=== PATIENT | female | born 1955 | race Caucasian/White ===

== ENCOUNTER 2017-11-15 09:04 | Inpatient (IN) ==
[2017-11-15] MEDS ORDERED: traMADol 50 MG TABLET PO PRN (11:18)
[2017-11-15] MEDS ORDERED: LOPERAMIDE 2 MG CAPSULE PO PRN ×2 (11:18)
[2017-11-15] MEDS ORDERED: ACETAMINOPHEN 325 MG TABLET PO PRN (11:18)
[2017-11-15] MEDS ORDERED: PROMETHAZINE INJ 25 MG in SODIUM CHLORIDE 0.9% 50 ML IV PRN (11:18)
[2017-11-15] MEDS ORDERED: LACTULOSE 20 GM/30 ML UDCUP PO PRN (11:18)
[2017-11-15] MEDS ORDERED: diphenhydrAMINE CAP 25 MG CAPSULE PO PRN (11:18)
[2017-11-15] MEDS ORDERED: chlorproMAZINE INJ 25 MG in SODIUM CHLORIDE 0.9% 100 ML IV PRN (11:18)
[2017-11-15] MEDS ORDERED: ALUMINUM/MAGNES/SIMETH MAX STR 30 ML UDCUP PO PRN (11:18)
[2017-11-15] MEDS ORDERED: MYLANTA/LIDO VISC 2:1 300 ML BOTTLE SWISH/SWAL PRN (11:18)
[2017-11-15] MEDS ORDERED: BENZTROPINE 2 MG/2 ML AMP IV PRN (11:18)
[2017-11-15] MEDS ORDERED: ALPRAZolam 0.25 MG TABLET PO PRN (11:18)
[2017-11-15] MEDS ORDERED: TEMAZEPAM 7.5 MG CAPSULE PO PRN (11:18)
[2017-11-15] MEDS ORDERED: chlorproMAZINE 25 MG TABLET PO PRN (11:18)
[2017-11-15] MEDS ORDERED: chlorproMAZINE INJ 50 MG in SODIUM CHLORIDE 0.9% 100 ML IV PRN (11:18)
[2017-11-15] MEDS ORDERED: guaiFENesin 200 MG/10 ML UDCUP PO PRN (11:18)
[2017-11-15] MEDS ORDERED: MAGNESIUM HYDROXIDE SUSP 30 ML UDCUP PO PRN (11:18)
[2017-11-15] MEDS ORDERED: MYLANTA/LIDO VISC 2:1 300 ML BOTTLE SWISH/SPIT PRN (11:18)
[2017-11-15] MEDS: MORPHINE 2 MG/1 ML SYRINGE IV PRN ×3 (13:21→20:58)
[2017-11-15] MEDS: ONDANSETRON 4 MG/2 ML VIAL IV PRN ×2 (13:25→20:59)
[2017-11-15] MEDS: SODIUM CHLORIDE 0.9% 1,000 ML IV SCH (14:29)
[2017-11-16] MEDS: SODIUM CHLORIDE 0.9% 1,000 ML IV SCH (04:37)
[2017-11-16 06:11] LABS: Calcium 8.3 MG/DL (8.5-10.1); Potassium 3.1 MMOL/L (3.5-5.1)
[2017-11-16] MEDS: DEXT 5% NACL 0.45% KCL 20 MEQ 20 MEQ/1,000 ML BAG IV SCH ×2 (08:44→22:03)
[2017-11-16] MEDS: ONDANSETRON 4 MG/2 ML VIAL IV PRN ×2 (08:44→14:01)
[2017-11-16 11:33] LABS: Apearance,Urine Slightly Hazy (Clear); Bacteria,Urine Occasional /HPF (Few); Bilirubin,Urine Negative (Negative); Blood, Urine Moderate mg/dL (Negative); Glucose,Urine (UA) Negative (Negative); Ketones,Urine Negative (Negative); Nitrite,Urine Negative (Negative); Protein,Urine Negative; RBC,Urine 2 /HPF (0-4); Squamous Epithelial Cell,Urine Occasional /HPF (0-10); Urine Color Yellow (Yellow); Urine Specific Gravity 1.005 (1.001-1.035); Urine Urobilinogen < 2.0 EU/DL (0.2-1.0); WBC,Urine 9 /HPF (0-6)
[2017-11-16] MEDS: MORPHINE 2 MG/1 ML SYRINGE IV PRN (14:01)
[2017-11-17 05:27] LABS: Eosinophils # 0.1 10*3/uL (0.0-0.87); Eosinophils % 1.7 % (0.00-10.9); Hematocrit 23.1 VOL% (35.7-47.0); Hemoglobin 7.7 GM/DL (12.0-16.0); Immature Granulocytes % 1.4 %; Immature Granulocytes Absolute 0.05 #; Lymphocytes # 0.4 10*3/uL (1.4-4.0); Lymphocytes % 11.4 % (21.3-54.2); Mean Corpuscular HGB Conc 33.3 GM/DL (32-36); Mean Corpuscular Hemoglobin 30 PG (27-34); Mean Corpuscular Volume 89.5 FL (87-102); Mean Platelet Volume 9.9 FL (9.6-12.0); Monocytes # 0.4 10*3/uL (0.11-0.8); Monocytes % 11.4 % (1.7-12.7); Neutrophils # 2.6 10*3/uL (1.4-7.4); Neutrophils % 74.1 % (38.7-73.9); Platelet Count 91 T/CUMM (130-400); Red Blood Count 2.58 MC/CUMM (3.8-5.5); Red Cell Distribution Width 16.3 % (9.3-17.3); White Blood Count 3.5 T/CUMM (4-12)
[2017-11-17 05:46] LABS: Microcytosis 1+; Ovalocytes Few
[2017-11-17 05:47] LABS: Albumin 2.7 G/DL (3.4-5.0); Calcium 7.3 MG/DL (8.5-10.1); Osmolality,Calculated 280.2 MOS/KG (273-304); Platelet Estimate Decreased; Potassium 3.2 MMOL/L (3.5-5.1)
[2017-11-17] MEDS ORDERED: SODIUM CHLORIDE 0.9% 1,000 ML IV PRN (07:53)
[2017-11-17] MEDS ORDERED: DIAZEPAM 5 MG TABLET PO ONE (09:29)
[2017-11-17] MEDS ORDERED: fentaNYL 100 MCG/2 ML VIAL IV ONE (09:29)
[2017-11-17] MEDS ORDERED: MIDAZOLAM 2 MG/2 ML VIAL IV ONE (09:29)
[2017-11-17] MEDS: DEXT 5% NACL 0.45% KCL 20 MEQ 20 MEQ/1,000 ML BAG IV SCH (12:13)
[2017-11-17] MEDS ORDERED: fentaNYL 100 MCG/2 ML VIAL ONE (14:10)
[2017-11-17] MEDS ORDERED: MIDAZOLAM 2 MG/2 ML VIAL ONE (14:11)
[2017-11-17] MEDS: ONDANSETRON 4 MG/2 ML VIAL IV PRN (17:29)
[2017-11-17] MEDS: MORPHINE 10 MG/1 ML VIAL IV PRN (17:29)
[2017-11-18 04:58] LABS: Basophils % 0.2 % (0.0-0.8); Eosinophils # 0.1 10*3/uL (0.0-0.87); Hematocrit 28.6 VOL% (35.7-47.0); Immature Granulocytes Absolute 0.04 #; Lymphocytes # 0.4 10*3/uL (1.4-4.0); Mean Corpuscular HGB Conc 33.2 GM/DL (32-36); Mean Corpuscular Hemoglobin 30 PG (27-34); Mean Corpuscular Volume 90.8 FL (87-102); Mean Platelet Volume 9.8 FL (9.6-12.0); Monocytes # 0.5 10*3/uL (0.11-0.8); Monocytes % 11.2 % (1.7-12.7); Neutrophils # 3.1 10*3/uL (1.4-7.4); Neutrophils % 75.6 % (38.7-73.9); Platelet Count 101 T/CUMM (130-400); White Blood Count 4.1 T/CUMM (4-12)
[2017-11-18 05:00] LABS: Hemoglobin 9.5 GM/DL (12.0-16.0); Red Blood Count 3.15 MC/CUMM (3.8-5.5)
[2017-11-18 05:20] LABS: Alanine Aminotransferase < 6 U/L (13-56); Albumin 2.9 G/DL (3.4-5.0); Alkaline Phosphatase 80 U/L (45-117); Aspartate Amino Transferase 12 U/L (0-37); Blood Urea Nitrogen 50 MG/DL (7-18); Calcium 7.9 MG/DL (8.5-10.1); Glucose 85 MG/DL (74-106); Osmolality,Calculated 290.4 MOS/KG (273-304); Potassium 3.4 MMOL/L (3.5-5.1); Sodium 140 MMOL/L (136-145); Total Protein 5.6 G/DL (6.4-8.3)
[2017-11-18 05:24] LABS: Burr Cells Slight; Hypochromasia Slight; Ovalocytes Slight; Platelet Estimate Decreased
[2017-11-18 05:25] LABS: Giant Platelets Few; Microcytosis Slight
[2017-11-18] MEDS: DEXT 5% NACL 0.45% KCL 20 MEQ 20 MEQ/1,000 ML BAG IV SCH ×2 (07:26→19:29)
[2017-11-18] MEDS: PANTOPRAZOLE 40 MG TABLET PO SCH (09:58)
[2017-11-18] MEDS: FLUoxetine 20 MG CAPSULE PO SCH (09:58)
[2017-11-18] MEDS: MORPHINE 10 MG/1 ML VIAL IV PRN ×2 (14:20→21:21)
[2017-11-18] MEDS: MEROPENEM 500 MG in SYRINGE 1 EACH IV SCH (16:14)
[2017-11-18] MEDS: tiZANidine 4 MG TABLET PO PRN ×2 (17:29→23:38)
[2017-11-19 05:44] LABS: Calcium 7.7 MG/DL (8.5-10.1); Osmolality,Calculated 295.8 MOS/KG (273-304); Potassium 3.9 MMOL/L (3.5-5.1)
[2017-11-19 06:14] LABS: Basophils % 0.6 % (0.0-0.8); Eosinophils % 1.2 % (0.00-10.9); Hemoglobin 8.8 GM/DL (12.0-16.0); Immature Granulocytes % 0.9 %; Immature Granulocytes Absolute 0.03 #; Lymphocytes # 0.6 10*3/uL (1.4-4.0); Lymphocytes % 16.2 % (21.3-54.2); Mean Corpuscular HGB Conc 32.6 GM/DL (32-36); Mean Corpuscular Hemoglobin 30 PG (27-34); Mean Corpuscular Volume 92.2 FL (87-102); Monocytes # 0.4 10*3/uL (0.11-0.8); Monocytes % 12.9 % (1.7-12.7); Neutrophils # 2.3 10*3/uL (1.4-7.4); Neutrophils % 68.2 % (38.7-73.9); Platelet Count 95 T/CUMM (130-400); Red Blood Count 2.93 MC/CUMM (3.8-5.5); Red Cell Distribution Width 16.4 % (9.3-17.3); White Blood Count 3.4 T/CUMM (4-12)
[2017-11-19] MEDS: MORPHINE 10 MG/1 ML VIAL IV PRN ×6 (06:27→20:09)
[2017-11-19] MEDS: LEVOTHYROXINE 125 MCG TABLET PO SCH (06:30)
[2017-11-19] MEDS: tiZANidine 4 MG TABLET PO PRN (06:30)
[2017-11-19] MEDS: PANTOPRAZOLE 40 MG TABLET PO SCH (09:07)
[2017-11-19] MEDS: FLUoxetine 20 MG CAPSULE PO SCH (09:09)
[2017-11-19] MEDS: DEXT 5% NACL 0.45% KCL 20 MEQ 20 MEQ/1,000 ML BAG IV SCH ×2 (09:16→22:30)
[2017-11-19] MEDS: BACLOFEN 10 MG TABLET PO SCH ×2 (10:57→21:08)
[2017-11-19] MEDS: MEROPENEM 500 MG in SYRINGE 1 EACH IV SCH (16:30)
[2017-11-20] MEDS: MORPHINE 10 MG/1 ML VIAL IV PRN ×2 (04:59→09:35)
[2017-11-20 05:41] LABS: Basophils % 0.5 % (0.0-0.8); Eosinophils # 0.1 10*3/uL (0.0-0.87); Eosinophils % 2.2 % (0.00-10.9); Hematocrit 29.9 VOL% (35.7-47.0); Hemoglobin 9.7 GM/DL (12.0-16.0); Immature Granulocytes Absolute 0.04 #; Lymphocytes # 0.6 10*3/uL (1.4-4.0); Lymphocytes % 13.9 % (21.3-54.2); Mean Corpuscular HGB Conc 32.4 GM/DL (32-36); Mean Corpuscular Hemoglobin 30 PG (27-34); Mean Corpuscular Volume 92.3 FL (87-102); Mean Platelet Volume 10.1 FL (9.6-12.0); Monocytes # 0.4 10*3/uL (0.11-0.8); Monocytes % 10.5 % (1.7-12.7); Neutrophils % 71.9 % (38.7-73.9); Platelet Count 100 T/CUMM (130-400); Red Blood Count 3.24 MC/CUMM (3.8-5.5); Red Cell Distribution Width 16.8 % (9.3-17.3); White Blood Count 4.2 T/CUMM (4-12)
[2017-11-20] MEDS: LEVOTHYROXINE 125 MCG TABLET PO SCH (06:06)
[2017-11-20] MEDS: DEXT 5% NACL 0.45% KCL 20 MEQ 20 MEQ/1,000 ML BAG IV SCH (06:08)
[2017-11-20 06:12] LABS: Osmolality,Calculated 288.1 MOS/KG (273-304); Potassium 3.8 MMOL/L (3.5-5.1)
[2017-11-20] MEDS: PANTOPRAZOLE 40 MG TABLET PO SCH (09:33)
[2017-11-20] MEDS: BACLOFEN 10 MG TABLET PO SCH (09:33)
[2017-11-20] MEDS: FLUoxetine 20 MG CAPSULE PO SCH (09:34)
[2017-11-20] MEDS: tiZANidine 4 MG TABLET PO PRN (13:37)
[2017-11-20] MEDS: MAGNESIUM CHLORIDE 64 MG TABLET PO SCH ×2 (15:59→20:20)
[2017-11-20] MEDS: MEROPENEM 500 MG in SYRINGE 1 EACH IV SCH (15:59)
[2017-11-20] MEDS: CYCLOBENZAPRINE 10 MG TABLET PO SCH (20:20)
[2017-11-21] MEDS: DEXT 5% NACL 0.45% KCL 20 MEQ 20 MEQ/1,000 ML BAG IV SCH (00:19)
[2017-11-21 06:08] LABS: Basophils % 0.3 % (0.0-0.8); Eosinophils # 0.1 10*3/uL (0.0-0.87); Eosinophils % 1.4 % (0.00-10.9); Hematocrit 29.7 VOL% (35.7-47.0); Hemoglobin 9.5 GM/DL (12.0-16.0); Immature Granulocytes % 0.7 %; Immature Granulocytes Absolute 0.04 #; Lymphocytes # 0.6 10*3/uL (1.4-4.0); Lymphocytes % 10.8 % (21.3-54.2); Mean Corpuscular Hemoglobin 31 PG (27-34); Mean Corpuscular Volume 96.4 FL (87-102); Mean Platelet Volume 9.8 FL (9.6-12.0); Monocytes # 0.5 10*3/uL (0.11-0.8); Monocytes % 8.1 % (1.7-12.7); Neutrophils # 4.6 10*3/uL (1.4-7.4); Neutrophils % 78.7 % (38.7-73.9); Platelet Count 101 T/CUMM (130-400); Red Blood Count 3.08 MC/CUMM (3.8-5.5); Red Cell Distribution Width 16.8 % (9.3-17.3); White Blood Count 5.9 T/CUMM (4-12)
[2017-11-21] MEDS: LEVOTHYROXINE 125 MCG TABLET PO SCH (06:25)
[2017-11-21 06:33] LABS: Albumin 2.8 G/DL (3.4-5.0); Osmolality,Calculated 281.5 MOS/KG (273-304)
[2017-11-21] MEDS: PANTOPRAZOLE 40 MG TABLET PO SCH (09:46)
[2017-11-21] MEDS: CYCLOBENZAPRINE 10 MG TABLET PO SCH (09:46)
[2017-11-21] MEDS: FLUoxetine 20 MG CAPSULE PO SCH (09:46)
[2017-11-21] MEDS: MAGNESIUM CHLORIDE 64 MG TABLET PO SCH (09:46)
[2017-11-21 12:36] VITALS: BP 179/75
[2017-11-21] MEDS ORDERED: HEPARIN LOCK FLUSH 500 UNIT/5 ML SYRINGE IV ONE (13:01)
== END 2017-11-21 13:25 | disposition home health service (06) | DRG 683 ==
LOC: N.4E 10:03
PROVIDERS: ADMIT Specialist; ATTEND Specialist

== ENCOUNTER 2017-12-22 10:05 | Inpatient (IN) ==
[2017-12-22] MEDS ORDERED: SODIUM CHLORIDE 0.9% 500 ML IV STA (10:28)
[2017-12-22 11:03] LABS: Basophils % 0.2 % (0.0-0.8); Eosinophils % 0.2 % (0.00-10.9); Hematocrit 25.4 VOL% (35.7-47.0); Hemoglobin 8.2 GM/DL (12.0-16.0); Immature Granulocytes % 1.2 %; Immature Granulocytes Absolute 0.06 #; Lymphocytes # 0.1 10*3/uL (1.4-4.0); Lymphocytes % 1.2 % (21.3-54.2); Mean Corpuscular HGB Conc 32.3 GM/DL (32-36); Mean Corpuscular Hemoglobin 31 PG (27-34); Mean Corpuscular Volume 94.8 FL (87-102); Monocytes # 0.3 10*3/uL (0.11-0.8); Monocytes % 6.1 % (1.7-12.7); Neutrophils # 4.5 10*3/uL (1.4-7.4); Neutrophils % 91.1 % (38.7-73.9); Platelet Count 136 T/CUMM (130-400); Red Blood Count 2.68 MC/CUMM (3.8-5.5); Red Cell Distribution Width 19.6 % (9.3-17.3)
[2017-12-22 11:20] LABS: Albumin 2.4 G/DL (3.4-5.0); Calcium 8.6 MG/DL (8.5-10.1); Osmolality,Calculated 287.7 MOS/KG (273-304); Potassium 3.3 MMOL/L (3.5-5.1); Total Protein 6.3 G/DL (6.4-8.3)
[2017-12-22 11:22] LABS: Band Neutrophils 4 % (0-10); Lymphocytes 1 % (20-55); Segmented Neutrophils 91 % (50-85); Total Cells Counted 100
[2017-12-22 11:23] LABS: Burr Cells Slight; Microcytosis 1+
[2017-12-22] MEDS ORDERED: chlorproMAZINE INJ 50 MG in SODIUM CHLORIDE 0.9% 100 ML IV PRN (16:05)
[2017-12-22] MEDS ORDERED: chlorproMAZINE INJ 25 MG in SODIUM CHLORIDE 0.9% 100 ML IV PRN (16:05)
[2017-12-22] MEDS ORDERED: diphenhydrAMINE CAP 25 MG CAPSULE PO PRN (16:05)
[2017-12-22] MEDS ORDERED: guaiFENesin 200 MG/10 ML UDCUP PO PRN (16:05)
[2017-12-22] MEDS ORDERED: MYLANTA/LIDO VISC 2:1 300 ML BOTTLE SWISH/SWAL PRN (16:05)
[2017-12-22] MEDS ORDERED: LOPERAMIDE 2 MG CAPSULE PO PRN ×2 (16:05)
[2017-12-22] MEDS ORDERED: chlorproMAZINE 25 MG TABLET PO PRN (16:05)
[2017-12-22] MEDS ORDERED: ALUMINUM/MAGNES/SIMETH MAX STR 30 ML UDCUP PO PRN (16:05)
[2017-12-22] MEDS ORDERED: traMADol 50 MG TABLET PO PRN (16:05)
[2017-12-22] MEDS ORDERED: SODIUM CHLORIDE 0.9% 1,000 ML IV SCH (16:05)
[2017-12-22] MEDS ORDERED: ALPRAZolam 0.25 MG TABLET PO PRN (16:05)
[2017-12-22] MEDS ORDERED: MYLANTA/LIDO VISC 2:1 300 ML BOTTLE SWISH/SPIT PRN (16:05)
[2017-12-22] MEDS ORDERED: MAGNESIUM HYDROXIDE SUSP 30 ML UDCUP PO PRN (16:05)
[2017-12-22] MEDS ORDERED: BENZTROPINE 2 MG/2 ML AMP IV PRN (16:05)
[2017-12-22 16:49] LABS: Uric Acid 10.3 MG/DL (2.6-6.0)
[2017-12-22] MEDS: MORPHINE 2 MG/1 ML SYRINGE IV PRN (22:39)
[2017-12-22] MEDS: ACETAMINOPHEN 325 MG TABLET PO PRN (22:41)
[2017-12-23] MEDS: ACETAMINOPHEN 325 MG TABLET PO PRN (05:01)
[2017-12-23 06:52] LABS: Basophils % 0.4 % (0.0-0.8); Hematocrit 25.5 VOL% (35.7-47.0); Hemoglobin 8.3 GM/DL (12.0-16.0); Immature Granulocytes % 8.2 %; Immature Granulocytes Absolute 0.23 #; Lymphocytes % 1.4 % (21.3-54.2); Mean Corpuscular HGB Conc 32.5 GM/DL (32-36); Mean Corpuscular Hemoglobin 30 PG (27-34); Mean Corpuscular Volume 93.4 FL (87-102); Mean Platelet Volume 10.6 FL (9.6-12.0); Monocytes # 0.1 10*3/uL (0.11-0.8); Monocytes % 2.5 % (1.7-12.7); Neutrophils # 2.5 10*3/uL (1.4-7.4); Neutrophils % 87.5 % (38.7-73.9); Platelet Count 130 T/CUMM (130-400); Red Blood Count 2.73 MC/CUMM (3.8-5.5); Red Cell Distribution Width 19.9 % (9.3-17.3); White Blood Count 2.8 T/CUMM (4-12)
[2017-12-23 07:11] LABS: Alanine Aminotransferase < 6 U/L (13-56); Albumin 2.4 G/DL (3.4-5.0); Alkaline Phosphatase 138 U/L (45-117); Aspartate Amino Transferase 18 U/L (0-37); Blood Urea Nitrogen 51 MG/DL (7-18); Calcium 7.7 MG/DL (8.5-10.1); Glucose 80 MG/DL (74-106); Osmolality,Calculated 293.3 MOS/KG (273-304); Potassium 3.5 MMOL/L (3.5-5.1); Sodium 141 MMOL/L (136-145); Total Protein 5.8 G/DL (6.4-8.3)
[2017-12-23 07:38] LABS: Band Neutrophils 2 % (0-10); Lymphocytes 1 % (20-55); Segmented Neutrophils 96 % (50-85); Total Cells Counted 100
[2017-12-23 07:39] LABS: Hypochromasia 1+; Microcytosis 1+; Ovalocytes Slight; Platelet Estimate Adequate
[2017-12-23] MEDS ORDERED: SODIUM CHLORIDE 0.9% 1,000 ML IV PRN (08:11)
[2017-12-23] MEDS ORDERED: LEVOFLOXACIN INJ 500 MG in PREMIX 1 EACH IV SCH (08:30)
[2017-12-23 10:03] LABS: Apearance,Urine CLOUDY (Clear); Bilirubin,Urine Negative (Negative); Blood, Urine Moderate mg/dL (Negative); Glucose,Urine (UA) Negative (Negative); Ketones,Urine Negative (Negative); Mucus,Urine Occasional /LPF (Occasional); Nitrite,Urine Negative (Negative); Protein,Urine 100 MG/DL; RBC,Urine 81 /HPF (0-4); Urine Specific Gravity 1.011 (1.001-1.035); WBC,Urine 772 /HPF (0-6)
[2017-12-23 10:04] LABS: Urine Color Dark yellow (Yellow)
[2017-12-23] MEDS: PANTOPRAZOLE 40 MG TABLET PO SCH (10:16)
[2017-12-23] MEDS: LEVOTHYROXINE 125 MCG TABLET PO SCH (10:16)
[2017-12-23] MEDS: FLUoxetine 20 MG CAPSULE PO SCH (10:16)
[2017-12-23] MEDS: METOPROLOL TARTRATE 50 MG TABLET PO SCH (10:16)
[2017-12-23] MEDS: SODIUM CHLORIDE 0.45% 1,000 ML IV SCH (10:17)
[2017-12-23] MEDS: VANCOMYCIN INJ 1,250 MG in SODIUM CHLORIDE 0.9% 250 ML IV SCH (12:55)
[2017-12-23] MEDS: MORPHINE 2 MG/1 ML SYRINGE IV PRN ×3 (13:40→22:49)
[2017-12-24] MEDS: SODIUM CHLORIDE 0.45% 1,000 ML IV SCH ×2 (04:59→08:08)
[2017-12-24 06:29] LABS: Basophils % 0.9 % (0.0-0.8); Hematocrit 29.3 VOL% (35.7-47.0); Hemoglobin 9.8 GM/DL (12.0-16.0); Immature Granulocytes % 0.5 %; Immature Granulocytes Absolute 0.01 #; Lymphocytes # 0.1 10*3/uL (1.4-4.0); Lymphocytes % 2.3 % (21.3-54.2); Mean Corpuscular HGB Conc 33.4 GM/DL (32-36); Mean Corpuscular Hemoglobin 30 PG (27-34); Mean Corpuscular Volume 90.7 FL (87-102); Mean Platelet Volume 10.6 FL (9.6-12.0); Monocytes # 0.1 10*3/uL (0.11-0.8); Neutrophils % 91.3 % (38.7-73.9); Platelet Count 118 T/CUMM (130-400); Red Blood Count 3.23 MC/CUMM (3.8-5.5); Red Cell Distribution Width 19.6 % (9.3-17.3); White Blood Count 2.2 T/CUMM (4-12)
[2017-12-24 06:55] LABS: Band Neutrophils 15 % (0-10); Lymphocytes 16 % (20-55); Macrocytosis 1+; Nucleated Red Blood Cells 1 (0-5); Platelet Estimate Decreased; Segmented Neutrophils 66 % (50-85); Total Cells Counted 100
[2017-12-24 07:03] LABS: Albumin 2.2 G/DL (3.4-5.0); Bilirubin,Total 1.3 MG/DL (0.2-1.0); Calcium 8.3 MG/DL (8.5-10.1); Osmolality,Calculated 290.4 MOS/KG (273-304); Potassium 3.4 MMOL/L (3.5-5.1); Total Protein 5.8 G/DL (6.4-8.3)
[2017-12-24] MEDS: LINACLOTIDE 145 MCG CAPSULE PO SCH (08:06)
[2017-12-24] MEDS: PANTOPRAZOLE 40 MG TABLET PO SCH (08:06)
[2017-12-24] MEDS: ONDANSETRON 4 MG/2 ML VIAL IV PRN ×2 (08:06→21:40)
[2017-12-24] MEDS: FLUoxetine 20 MG CAPSULE PO SCH (08:06)
[2017-12-24] MEDS: LEVOTHYROXINE 125 MCG TABLET PO SCH (08:06)
[2017-12-24] MEDS: METOPROLOL TARTRATE 50 MG TABLET PO SCH (08:06)
[2017-12-24] MEDS: MORPHINE 2 MG/1 ML SYRINGE IV PRN (08:06)
[2017-12-24] MEDS ORDERED: LEVOFLOXACIN INJ 250 MG in PREMIX 1 EACH IV SCH (09:00)
[2017-12-24] MEDS: LACTULOSE 20 GM/30 ML UDCUP PO PRN (10:04)
[2017-12-24] MEDS: DEXT 5% NACL 0.45% KCL 20 MEQ 20 MEQ/1,000 ML BAG IV SCH ×2 (10:04→20:22)
[2017-12-24] MEDS: TEMAZEPAM 7.5 MG CAPSULE PO PRN (21:28)
[2017-12-25] MEDS: PROMETHAZINE INJ 25 MG in SODIUM CHLORIDE 0.9% 50 ML IV PRN ×3 (00:25→11:59)
[2017-12-25] MEDS: DEXT 5% NACL 0.45% KCL 20 MEQ 20 MEQ/1,000 ML BAG IV SCH ×4 (06:20→21:35)
[2017-12-25] MEDS: FLUoxetine 20 MG CAPSULE PO SCH (08:28)
[2017-12-25] MEDS: PANTOPRAZOLE 40 MG TABLET PO SCH (08:28)
[2017-12-25] MEDS: LEVOTHYROXINE 125 MCG TABLET PO SCH (08:28)
[2017-12-25] MEDS: METOPROLOL TARTRATE 50 MG TABLET PO SCH (08:28)
[2017-12-25] MEDS: LINACLOTIDE 145 MCG CAPSULE PO SCH (08:29)
[2017-12-25] MEDS: MORPHINE 2 MG/1 ML SYRINGE IV PRN ×3 (08:38→22:11)
[2017-12-25] MEDS: ONDANSETRON 4 MG/2 ML VIAL IV PRN (08:39)
[2017-12-25 11:52] LABS: Calcium 8.9 MG/DL (8.5-10.1); Osmolality,Calculated 292.4 MOS/KG (273-304); Potassium 3.8 MMOL/L (3.5-5.1)
[2017-12-25] MEDS: VANCOMYCIN INJ 1,250 MG in SODIUM CHLORIDE 0.9% 250 ML IV SCH (13:18)
[2017-12-25] MEDS: MUPIROCIN 2% OINT 22 GM TUBE TOP SCH ×2 (15:12→20:58)
[2017-12-25] MEDS: PHENOL 1.4% THROAT SPRAY 177 ML BOTTLE PO PRN ×2 (15:12→21:39)
[2017-12-26] MEDS: DEXT 5% NACL 0.45% KCL 20 MEQ 20 MEQ/1,000 ML BAG IV SCH ×2 (03:15→16:38)
[2017-12-26] MEDS: MORPHINE 2 MG/1 ML SYRINGE IV PRN ×4 (04:24→18:08)
[2017-12-26 04:41] LABS: Basophils % 0.3 % (0.0-0.8); Eosinophils % 0.3 % (0.00-10.9); Hematocrit 29.7 VOL% (35.7-47.0); Hemoglobin 9.5 GM/DL (12.0-16.0); Immature Granulocytes % 1.4 %; Immature Granulocytes Absolute 0.05 #; Lymphocytes # 0.1 10*3/uL (1.4-4.0); Lymphocytes % 3.4 % (21.3-54.2); Mean Corpuscular Hemoglobin 30 PG (27-34); Mean Platelet Volume 10.8 FL (9.6-12.0); Monocytes # 0.2 10*3/uL (0.11-0.8); Monocytes % 4.8 % (1.7-12.7); Neutrophils # 3.2 10*3/uL (1.4-7.4); Neutrophils % 89.8 % (38.7-73.9); Platelet Count 95 T/CUMM (130-400); Red Blood Count 3.16 MC/CUMM (3.8-5.5); Red Cell Distribution Width 19.4 % (9.3-17.3); White Blood Count 3.5 T/CUMM (4-12)
[2017-12-26 05:05] LABS: Band Neutrophils 3 % (0-10); Lymphocytes 10 % (20-55); Macrocytosis 2+; Platelet Estimate Decreased; Segmented Neutrophils 86 % (50-85); Total Cells Counted 100
[2017-12-26 05:07] LABS: Alanine Aminotransferase < 9 U/L (13-56); Alkaline Phosphatase 113 U/L (45-117); Aspartate Amino Transferase 19 U/L (0-37); Blood Urea Nitrogen 42 MG/DL (7-18); Calcium 8.5 MG/DL (8.5-10.1); Glucose 110 MG/DL (74-106); Potassium 3.8 MMOL/L (3.5-5.1); Sodium 143 MMOL/L (136-145); Total Protein 5.7 G/DL (6.4-8.3)
[2017-12-26] MEDS: MUPIROCIN 2% OINT 22 GM TUBE TOP SCH ×3 (08:38→21:08)
[2017-12-26] MEDS: LEVOTHYROXINE 125 MCG TABLET PO SCH (09:30)
[2017-12-26] MEDS: FLUoxetine 20 MG CAPSULE PO SCH (09:31)
[2017-12-26] MEDS: PANTOPRAZOLE 40 MG TABLET PO SCH (09:31)
[2017-12-26] MEDS: METOPROLOL TARTRATE 50 MG TABLET PO SCH (09:31)
[2017-12-26] MEDS: LINACLOTIDE 145 MCG CAPSULE PO SCH (09:31)
[2017-12-26] MEDS ORDERED: FUROSEMIDE 20 MG/2 ML VIAL IV ONE (16:16)
[2017-12-26] MEDS: ACETAMINOPHEN 325 MG TABLET PO PRN (16:37)
[2017-12-27] MEDS: MORPHINE 2 MG/1 ML SYRINGE IV PRN ×3 (01:25→15:57)
[2017-12-27] MEDS: TEMAZEPAM 7.5 MG CAPSULE PO PRN (01:27)
[2017-12-27] MEDS: DEXT 5% NACL 0.45% KCL 20 MEQ 20 MEQ/1,000 ML BAG IV SCH ×2 (03:35→20:46)
[2017-12-27 05:50] LABS: Eosinophils % 0.3 % (0.00-10.9); Hematocrit 28.9 VOL% (35.7-47.0); Hemoglobin 9.1 GM/DL (12.0-16.0); Immature Granulocytes % 4.5 %; Immature Granulocytes Absolute 0.14 #; Lymphocytes # 0.2 10*3/uL (1.4-4.0); Lymphocytes % 5.4 % (21.3-54.2); Mean Corpuscular HGB Conc 31.5 GM/DL (32-36); Mean Corpuscular Hemoglobin 30 PG (27-34); Mean Corpuscular Volume 95.4 FL (87-102); Mean Platelet Volume 11.2 FL (9.6-12.0); Monocytes # 0.1 10*3/uL (0.11-0.8); Monocytes % 4.2 % (1.7-12.7); Neutrophils # 2.7 10*3/uL (1.4-7.4); Neutrophils % 85.6 % (38.7-73.9); Platelet Count 76 T/CUMM (130-400); Red Blood Count 3.03 MC/CUMM (3.8-5.5); Red Cell Distribution Width 19.3 % (9.3-17.3); White Blood Count 3.1 T/CUMM (4-12)
[2017-12-27 06:14] LABS: Band Neutrophils 1 % (0-10); Eosinophils 1 % (0-10); Giant Platelets Few; Hypochromasia 1+; Lymphocytes 5 % (20-55); Ovalocytes Slight; Platelet Estimate Decreased; Segmented Neutrophils 88 % (50-85); Total Cells Counted 100
[2017-12-27] MEDS: PANTOPRAZOLE 40 MG TABLET PO SCH (08:41)
[2017-12-27] MEDS: LEVOTHYROXINE 125 MCG TABLET PO SCH (08:41)
[2017-12-27] MEDS: METOPROLOL TARTRATE 50 MG TABLET PO SCH (08:41)
[2017-12-27] MEDS: FLUoxetine 20 MG CAPSULE PO SCH (08:41)
[2017-12-27] MEDS: LINACLOTIDE 145 MCG CAPSULE PO SCH (08:42)
[2017-12-27] MEDS: MUPIROCIN 2% OINT 22 GM TUBE TOP SCH ×3 (08:44→20:45)
[2017-12-27] MEDS: VANCOMYCIN INJ 1,250 MG in SODIUM CHLORIDE 0.9% 250 ML IV SCH (12:21)
[2017-12-28] MEDS: MORPHINE 2 MG/1 ML SYRINGE IV PRN ×3 (03:07→19:25)
[2017-12-28 03:59] LABS: Basophils % 0.3 % (0.0-0.8); Eosinophils % 0.3 % (0.00-10.9); Hematocrit 30.3 VOL% (35.7-47.0); Hemoglobin 9.8 GM/DL (12.0-16.0); Immature Granulocytes % 3.7 %; Immature Granulocytes Absolute 0.14 #; Lymphocytes # 0.1 10*3/uL (1.4-4.0); Lymphocytes % 3.5 % (21.3-54.2); Mean Corpuscular HGB Conc 32.3 GM/DL (32-36); Mean Corpuscular Hemoglobin 30 PG (27-34); Mean Corpuscular Volume 92.9 FL (87-102); Mean Platelet Volume 10.7 FL (9.6-12.0); Monocytes # 0.2 10*3/uL (0.11-0.8); Monocytes % 5.6 % (1.7-12.7); Neutrophils # 3.2 10*3/uL (1.4-7.4); Neutrophils % 86.6 % (38.7-73.9); Platelet Count 70 T/CUMM (130-400); Red Blood Count 3.26 MC/CUMM (3.8-5.5); Red Cell Distribution Width 18.8 % (9.3-17.3); White Blood Count 3.7 T/CUMM (4-12)
[2017-12-28 04:23] LABS: Band Neutrophils 3 % (0-10); Lymphocytes 4 % (20-55); Macrocytosis 1+; Platelet Estimate Decreased; Segmented Neutrophils 92 % (50-85); Total Cells Counted 100
[2017-12-28 04:24] LABS: Albumin 2.2 G/DL (3.4-5.0); Calcium 8.2 MG/DL (8.5-10.1); Total Protein 5.7 G/DL (6.4-8.3)
[2017-12-28 04:25] LABS: Osmolality,Calculated 279.5 MOS/KG (273-304); Potassium 3.4 MMOL/L (3.5-5.1)
[2017-12-28] MEDS: METOPROLOL TARTRATE 50 MG TABLET PO SCH (09:45)
[2017-12-28] MEDS: MAGNESIUM OXIDE 400 MG TABLET PO SCH ×2 (09:46→21:08)
[2017-12-28] MEDS: PANTOPRAZOLE 40 MG TABLET PO SCH (09:46)
[2017-12-28] MEDS: LEVOTHYROXINE 125 MCG TABLET PO SCH (09:47)
[2017-12-28] MEDS: FLUoxetine 20 MG CAPSULE PO SCH (09:47)
[2017-12-28] MEDS: MUPIROCIN 2% OINT 22 GM TUBE TOP SCH ×3 (09:48→21:09)
[2017-12-28] MEDS: LINACLOTIDE 145 MCG CAPSULE PO SCH (10:19)
[2017-12-28] MEDS ORDERED: LIDOCAINE 1%/EPI INJ 20 ML VIAL ONE (10:57)
[2017-12-28] MEDS ORDERED: TISSUE ADHESIVE 1 EACH APPLICATOR TOP ONE (10:57)
[2017-12-28] MEDS: VANCOMYCIN INJ 1,250 MG in SODIUM CHLORIDE 0.9% 250 ML IV SCH ×2 (11:20→21:08)
[2017-12-28] MEDS ORDERED: PROPOFOL 200 MG/20 ML VIAL IV ONE (11:54)
[2017-12-28] MEDS ORDERED: MIDAZOLAM 2 MG/2 ML VIAL ONE (11:54)
[2017-12-28] MEDS ORDERED: fentaNYL 100 MCG/2 ML VIAL ONE (11:55)
[2017-12-28] MEDS: DEXT 5% NACL 0.45% KCL 20 MEQ 20 MEQ/1,000 ML BAG IV SCH (19:25)
[2017-12-29 05:15] LABS: Basophils % 0.3 % (0.0-0.8); Eosinophils % 0.3 % (0.00-10.9); Hematocrit 33.6 VOL% (35.7-47.0); Hemoglobin 10.7 GM/DL (12.0-16.0); Immature Granulocytes % 2.6 %; Lymphocytes # 0.2 10*3/uL (1.4-4.0); Lymphocytes % 5.8 % (21.3-54.2); Mean Corpuscular HGB Conc 31.8 GM/DL (32-36); Mean Corpuscular Hemoglobin 30 PG (27-34); Mean Corpuscular Volume 93.9 FL (87-102); Mean Platelet Volume 11.2 FL (9.6-12.0); Monocytes # 0.2 10*3/uL (0.11-0.8); Monocytes % 5.8 % (1.7-12.7); Neutrophils # 3.2 10*3/uL (1.4-7.4); Neutrophils % 85.2 % (38.7-73.9); Platelet Count 75 T/CUMM (130-400); Red Blood Count 3.58 MC/CUMM (3.8-5.5); Red Cell Distribution Width 18.5 % (9.3-17.3); White Blood Count 3.8 T/CUMM (4-12)
[2017-12-29 05:39] LABS: Eosinophils 2 % (0-10); Hypochromasia 1+; Lymphocytes 3 % (20-55); Microcytosis 1+; Segmented Neutrophils 92 % (50-85); Total Cells Counted 100
[2017-12-29 05:40] LABS: Ovalocytes Slight; Platelet Estimate Decreased
[2017-12-29 06:01] LABS: Albumin 2.3 G/DL (3.4-5.0); Bilirubin,Total 1.7 MG/DL (0.2-1.0); Osmolality,Calculated 278.5 MOS/KG (273-304); Potassium 3.5 MMOL/L (3.5-5.1); Total Protein 5.7 G/DL (6.4-8.3)
[2017-12-29] MEDS: LEVOTHYROXINE 125 MCG TABLET PO SCH (10:03)
[2017-12-29] MEDS: MAGNESIUM OXIDE 400 MG TABLET PO SCH ×2 (10:03→21:28)
[2017-12-29] MEDS: FLUoxetine 20 MG CAPSULE PO SCH (10:03)
[2017-12-29] MEDS: VANCOMYCIN INJ 1,250 MG in SODIUM CHLORIDE 0.9% 250 ML IV SCH (10:04)
[2017-12-29] MEDS: LINACLOTIDE 145 MCG CAPSULE PO SCH (10:04)
[2017-12-29] MEDS: PANTOPRAZOLE 40 MG TABLET PO SCH (10:04)
[2017-12-29] MEDS: METOPROLOL TARTRATE 50 MG TABLET PO SCH (10:04)
[2017-12-29] MEDS: MUPIROCIN 2% OINT 22 GM TUBE TOP SCH ×3 (10:05→21:32)
[2017-12-29] MEDS: MORPHINE 2 MG/1 ML SYRINGE IV PRN ×2 (10:07→18:05)
[2017-12-29] MEDS: TEMAZEPAM 7.5 MG CAPSULE PO PRN (21:28)
[2017-12-29] MEDS: DEXT 5% NACL 0.45% KCL 20 MEQ 20 MEQ/1,000 ML BAG IV SCH (21:30)
[2017-12-30] MEDS: VANCOMYCIN INJ 1,250 MG in SODIUM CHLORIDE 0.9% 250 ML IV SCH ×2 (04:25→20:50)
[2017-12-30] MEDS ORDERED: LABETALOL 20 MG/4 ML SYRINGE IV ONE (05:45)
[2017-12-30 05:53] LABS: Hematocrit 32.2 VOL% (35.7-47.0); Hemoglobin 10.4 GM/DL (12.0-16.0); Immature Granulocytes % 1.7 %; Immature Granulocytes Absolute 0.07 #; Lymphocytes # 0.2 10*3/uL (1.4-4.0); Lymphocytes % 4.2 % (21.3-54.2); Mean Corpuscular HGB Conc 32.3 GM/DL (32-36); Mean Corpuscular Hemoglobin 30 PG (27-34); Mean Corpuscular Volume 92.8 FL (87-102); Monocytes # 0.2 10*3/uL (0.11-0.8); Monocytes % 5.7 % (1.7-12.7); Neutrophils # 3.6 10*3/uL (1.4-7.4); Neutrophils % 88.4 % (38.7-73.9); Platelet Count 81 T/CUMM (130-400); Red Blood Count 3.47 MC/CUMM (3.8-5.5); Red Cell Distribution Width 18.2 % (9.3-17.3)
[2017-12-30] MEDS: MORPHINE 2 MG/1 ML SYRINGE IV PRN ×4 (06:00→19:43)
[2017-12-30 06:16] LABS: Albumin 2.3 G/DL (3.4-5.0); Bilirubin,Total 1.5 MG/DL (0.2-1.0); Calcium 8.2 MG/DL (8.5-10.1); Osmolality,Calculated 273.8 MOS/KG (273-304); Potassium 3.6 MMOL/L (3.5-5.1); Total Protein 6.1 G/DL (6.4-8.3)
[2017-12-30 06:24] LABS: Lymphocytes 2 % (20-55); Segmented Neutrophils 93 % (50-85); Total Cells Counted 100
[2017-12-30 06:25] LABS: Giant Platelets Few; Hypochromasia 1+; Microcytosis Slight; Ovalocytes Slight; Platelet Estimate Decreased
[2017-12-30] MEDS: PANTOPRAZOLE 40 MG TABLET PO SCH (09:39)
[2017-12-30] MEDS: MAGNESIUM OXIDE 400 MG TABLET PO SCH ×2 (09:39→20:45)
[2017-12-30] MEDS: FLUoxetine 20 MG CAPSULE PO SCH (09:39)
[2017-12-30] MEDS: METOPROLOL TARTRATE 50 MG TABLET PO SCH (09:39)
[2017-12-30] MEDS: LINACLOTIDE 145 MCG CAPSULE PO SCH (09:39)
[2017-12-30] MEDS: LEVOTHYROXINE 125 MCG TABLET PO SCH (09:39)
[2017-12-30] MEDS: MUPIROCIN 2% OINT 22 GM TUBE TOP SCH ×3 (10:29→20:46)
[2017-12-30] MEDS ORDERED: SODIUM CHLORIDE 0.9% 1,000 ML IV SCH ×2 (17:30)
[2017-12-30] MEDS: DEXT 5% NACL 0.45% KCL 20 MEQ 20 MEQ/1,000 ML BAG IV SCH ×2 (18:02→19:47)
[2017-12-30] MEDS ORDERED: hydrALAZINE 20 MG/1 ML VIAL IV PRN (22:00)
[2017-12-31] MEDS ORDERED: cloNIDine 0.1 MG TABLET PO ONE (04:38)
[2017-12-31] MEDS: LINACLOTIDE 145 MCG CAPSULE PO SCH (08:12)
[2017-12-31] MEDS ORDERED: PROPOFOL 200 MG/20 ML VIAL IV ONE (08:48)
[2017-12-31] MEDS ORDERED: MIDAZOLAM 2 MG/2 ML VIAL ONE (08:48)
[2017-12-31] MEDS ORDERED: fentaNYL 100 MCG/2 ML VIAL ONE (08:48)
[2017-12-31] MEDS ORDERED: LACTULOSE 20 GM/30 ML UDCUP PO ONE (09:49)
[2017-12-31] MEDS: amLODIPine 10 MG TABLET PO SCH (11:22)
[2017-12-31] MEDS: PANTOPRAZOLE 40 MG TABLET PO SCH (11:25)
[2017-12-31] MEDS: METOPROLOL TARTRATE 50 MG TABLET PO SCH (11:25)
[2017-12-31] MEDS: MAGNESIUM OXIDE 400 MG TABLET PO SCH ×2 (11:25→20:08)
[2017-12-31] MEDS: LEVOTHYROXINE 125 MCG TABLET PO SCH (11:26)
[2017-12-31] MEDS: FLUoxetine 20 MG CAPSULE PO SCH (11:26)
[2017-12-31] MEDS: MUPIROCIN 2% OINT 22 GM TUBE TOP SCH ×3 (11:26→23:08)
[2017-12-31] MEDS: CYCLOBENZAPRINE 10 MG TABLET PO SCH ×2 (16:19→20:09)
[2017-12-31] MEDS: MORPHINE 10 MG/1 ML VIAL IV PRN ×2 (20:07→23:08)
[2017-12-31] MEDS: DEXT 5% NACL 0.45% KCL 20 MEQ 20 MEQ/1,000 ML BAG IV SCH (20:14)
[2018-01-01] MEDS: MORPHINE 10 MG/1 ML VIAL IV PRN ×3 (01:23→09:46)
[2018-01-01 05:41] LABS: Albumin 2.6 G/DL (3.4-5.0); Calcium 8.1 MG/DL (8.5-10.1); Osmolality,Calculated 272.8 MOS/KG (273-304); Potassium 3.8 MMOL/L (3.5-5.1)
[2018-01-01 06:33] LABS: Hematocrit 31.6 VOL% (35.7-47.0); Hemoglobin 10.1 GM/DL (12.0-16.0); Immature Granulocytes % 1.1 %; Immature Granulocytes Absolute 0.04 #; Lymphocytes # 0.2 10*3/uL (1.4-4.0); Lymphocytes % 5.7 % (21.3-54.2); Mean Corpuscular Hemoglobin 30 PG (27-34); Mean Corpuscular Volume 93.8 FL (87-102); Monocytes # 0.3 10*3/uL (0.11-0.8); Monocytes % 9.8 % (1.7-12.7); Neutrophils # 2.9 10*3/uL (1.4-7.4); Neutrophils % 83.4 % (38.7-73.9); Platelet Count 89 T/CUMM (130-400); Red Blood Count 3.37 MC/CUMM (3.8-5.5); Red Cell Distribution Width 17.5 % (9.3-17.3); White Blood Count 3.5 T/CUMM (4-12)
[2018-01-01] MEDS: amLODIPine 10 MG TABLET PO SCH (09:41)
[2018-01-01] MEDS: PANTOPRAZOLE 40 MG TABLET PO SCH (09:41)
[2018-01-01] MEDS: CYCLOBENZAPRINE 10 MG TABLET PO SCH ×3 (09:41→20:45)
[2018-01-01] MEDS: FLUoxetine 20 MG CAPSULE PO SCH (09:42)
[2018-01-01] MEDS: LEVOTHYROXINE 125 MCG TABLET PO SCH (09:42)
[2018-01-01] MEDS: METOPROLOL TARTRATE 50 MG TABLET PO SCH (09:42)
[2018-01-01] MEDS: MAGNESIUM OXIDE 400 MG TABLET PO SCH ×2 (09:42→20:45)
[2018-01-01] MEDS: MUPIROCIN 2% OINT 22 GM TUBE TOP SCH ×3 (09:48→20:44)
[2018-01-01] MEDS: LINACLOTIDE 145 MCG CAPSULE PO SCH (10:10)
[2018-01-01] MEDS: VANCOMYCIN INJ 1,250 MG in SODIUM CHLORIDE 0.9% 250 ML IV SCH (13:13)
[2018-01-01] MEDS: DEXT 5% NACL 0.45% KCL 20 MEQ 20 MEQ/1,000 ML BAG IV SCH (17:45)
[2018-01-02] MEDS: MORPHINE 10 MG/1 ML VIAL IV PRN ×3 (00:11→14:19)
[2018-01-02] MEDS: MUPIROCIN 2% OINT 22 GM TUBE TOP SCH ×3 (09:17→20:10)
[2018-01-02] MEDS: LEVOTHYROXINE 125 MCG TABLET PO SCH (09:17)
[2018-01-02] MEDS: amLODIPine 10 MG TABLET PO SCH (09:17)
[2018-01-02] MEDS: METOPROLOL TARTRATE 50 MG TABLET PO SCH (09:17)
[2018-01-02] MEDS: FLUoxetine 20 MG CAPSULE PO SCH (09:17)
[2018-01-02] MEDS: MAGNESIUM OXIDE 400 MG TABLET PO SCH ×2 (09:18→20:10)
[2018-01-02] MEDS: CYCLOBENZAPRINE 10 MG TABLET PO SCH ×3 (09:18→20:10)
[2018-01-02] MEDS: LINACLOTIDE 145 MCG CAPSULE PO SCH (09:18)
[2018-01-02] MEDS: PANTOPRAZOLE 40 MG TABLET PO SCH (09:18)
[2018-01-02] MEDS: FONDAPARINUX 2.5 MG/0.5 ML SYRINGE SUBCUT SCH (11:32)
[2018-01-02] MEDS: VANCOMYCIN INJ 1,250 MG in SODIUM CHLORIDE 0.9% 250 ML IV SCH (11:34)
[2018-01-02] MEDS: DEXT 5% NACL 0.45% KCL 20 MEQ 20 MEQ/1,000 ML BAG IV SCH (15:56)
[2018-01-03] MEDS: MORPHINE 10 MG/1 ML VIAL IV PRN ×7 (00:39→23:14)
[2018-01-03 05:21] LABS: Basophils % 0.3 % (0.0-0.8); Hematocrit 28.8 VOL% (35.7-47.0); Hemoglobin 9.6 GM/DL (12.0-16.0); Immature Granulocytes Absolute 0.03 #; Lymphocytes # 0.3 10*3/uL (1.4-4.0); Lymphocytes % 8.1 % (21.3-54.2); Mean Corpuscular HGB Conc 33.3 GM/DL (32-36); Mean Corpuscular Hemoglobin 30 PG (27-34); Mean Corpuscular Volume 90.9 FL (87-102); Mean Platelet Volume 10.9 FL (9.6-12.0); Monocytes # 0.3 10*3/uL (0.11-0.8); Monocytes % 11.1 % (1.7-12.7); Neutrophils # 2.4 10*3/uL (1.4-7.4); Neutrophils % 79.5 % (38.7-73.9); Platelet Count 88 T/CUMM (130-400); Red Blood Count 3.17 MC/CUMM (3.8-5.5); Red Cell Distribution Width 16.8 % (9.3-17.3); White Blood Count 3.1 T/CUMM (4-12)
[2018-01-03 05:58] LABS: Band Neutrophils 4 % (0-10); Giant Platelets Few; Hypochromasia 1+; Lymphocytes 13 % (20-55); Microcytosis Slight; Ovalocytes Slight; Platelet Estimate Decreased; Segmented Neutrophils 73 % (50-85); Total Cells Counted 100
[2018-01-03 06:01] LABS: Albumin 2.5 G/DL (3.4-5.0); Bilirubin,Total 1.1 MG/DL (0.2-1.0); Calcium 8.3 MG/DL (8.5-10.1); Osmolality,Calculated 273.8 MOS/KG (273-304); Total Protein 6.1 G/DL (6.4-8.3)
[2018-01-03] MEDS: LINACLOTIDE 145 MCG CAPSULE PO SCH (08:17)
[2018-01-03] MEDS: amLODIPine 10 MG TABLET PO SCH (08:22)
[2018-01-03] MEDS: FLUoxetine 20 MG CAPSULE PO SCH (08:22)
[2018-01-03] MEDS: MAGNESIUM OXIDE 400 MG TABLET PO SCH ×2 (08:22→20:45)
[2018-01-03] MEDS: METOPROLOL TARTRATE 50 MG TABLET PO SCH (08:22)
[2018-01-03] MEDS: CYCLOBENZAPRINE 10 MG TABLET PO SCH ×3 (08:22→20:45)
[2018-01-03] MEDS: LEVOTHYROXINE 125 MCG TABLET PO SCH (08:22)
[2018-01-03] MEDS: PANTOPRAZOLE 40 MG TABLET PO SCH (08:22)
[2018-01-03] MEDS: MUPIROCIN 2% OINT 22 GM TUBE TOP SCH ×3 (11:38→20:47)
[2018-01-03] MEDS: FONDAPARINUX 2.5 MG/0.5 ML SYRINGE SUBCUT SCH (11:46)
[2018-01-03] MEDS: DEXT 5% NACL 0.45% KCL 20 MEQ 20 MEQ/1,000 ML BAG IV SCH (12:07)
[2018-01-03] MEDS: CEFTAROLINE 600 MG in SODIUM CHLORIDE 0.9% 100 ML IV SCH (14:16)
[2018-01-03] MEDS: VANCOMYCIN INJ 1,250 MG in SODIUM CHLORIDE 0.9% 250 ML IV SCH (15:26)
[2018-01-04] MEDS: CEFTAROLINE 600 MG in SODIUM CHLORIDE 0.9% 100 ML IV SCH ×2 (00:55→12:09)
[2018-01-04] MEDS: MORPHINE 10 MG/1 ML VIAL IV PRN (01:30)
[2018-01-04 07:33] LABS: Basophils % 0.7 % (0.0-0.8); Hematocrit 29.2 VOL% (35.7-47.0); Hemoglobin 9.6 GM/DL (12.0-16.0); Immature Granulocytes % 0.7 %; Immature Granulocytes Absolute 0.02 #; Lymphocytes # 0.2 10*3/uL (1.4-4.0); Lymphocytes % 7.2 % (21.3-54.2); Mean Corpuscular HGB Conc 32.9 GM/DL (32-36); Mean Corpuscular Hemoglobin 30 PG (27-34); Mean Platelet Volume 10.5 FL (9.6-12.0); Monocytes # 0.3 10*3/uL (0.11-0.8); Monocytes % 11.1 % (1.7-12.7); Neutrophils # 2.5 10*3/uL (1.4-7.4); Neutrophils % 80.3 % (38.7-73.9); Red Blood Count 3.21 MC/CUMM (3.8-5.5); Red Cell Distribution Width 17.2 % (9.3-17.3); White Blood Count 3.1 T/CUMM (4-12)
[2018-01-04 07:36] LABS: Platelet Count 98 T/CUMM (130-400)
[2018-01-04 07:55] LABS: Giant Platelets Few; Hypochromasia 1+; Ovalocytes Slight; Platelet Estimate Decreased
[2018-01-04 07:56] LABS: Microcytosis Slight
[2018-01-04 08:05] LABS: Albumin 2.5 G/DL (3.4-5.0); Bilirubin,Total 0.9 MG/DL (0.2-1.0); Calcium 8.5 MG/DL (8.5-10.1); Osmolality,Calculated 275.7 MOS/KG (273-304); Potassium 4.2 MMOL/L (3.5-5.1); Total Protein 6.4 G/DL (6.4-8.3)
[2018-01-04] MEDS: PANTOPRAZOLE 40 MG TABLET PO SCH (08:47)
[2018-01-04] MEDS: MAGNESIUM OXIDE 400 MG TABLET PO SCH ×2 (08:48→20:23)
[2018-01-04] MEDS: amLODIPine 10 MG TABLET PO SCH (08:48)
[2018-01-04] MEDS: FLUoxetine 20 MG CAPSULE PO SCH (08:48)
[2018-01-04] MEDS: LEVOTHYROXINE 125 MCG TABLET PO SCH (08:49)
[2018-01-04] MEDS: METOPROLOL TARTRATE 50 MG TABLET PO SCH (08:49)
[2018-01-04] MEDS: LINACLOTIDE 145 MCG CAPSULE PO SCH (08:49)
[2018-01-04] MEDS: CYCLOBENZAPRINE 10 MG TABLET PO SCH ×3 (08:49→20:23)
[2018-01-04] MEDS: MUPIROCIN 2% OINT 22 GM TUBE TOP SCH ×3 (09:09→20:25)
[2018-01-04] MEDS: FONDAPARINUX 2.5 MG/0.5 ML SYRINGE SUBCUT SCH (10:46)
[2018-01-04] MEDS ORDERED: LIDOCAINE 1% 5 ML VIAL ONE (13:35)
[2018-01-04] MEDS ORDERED: fentaNYL 100 MCG/2 ML VIAL ONE (15:04)
[2018-01-04] MEDS ORDERED: PROPOFOL 200 MG/20 ML VIAL IV ONE (15:04)
[2018-01-04] MEDS ORDERED: MIDAZOLAM 2 MG/2 ML VIAL ONE (15:04)
[2018-01-04] MEDS: VANCOMYCIN INJ 1,250 MG in SODIUM CHLORIDE 0.9% 250 ML IV SCH (15:59)
[2018-01-04] MEDS: DEXT 5% NACL 0.45% KCL 20 MEQ 20 MEQ/1,000 ML BAG IV SCH (16:00)
[2018-01-04] MEDS: ONDANSETRON 4 MG/2 ML VIAL IV PRN (18:16)
[2018-01-04] MEDS: TEMAZEPAM 7.5 MG CAPSULE PO PRN (20:22)
[2018-01-05] MEDS: CEFTAROLINE 600 MG in SODIUM CHLORIDE 0.9% 100 ML IV SCH ×2 (00:42→13:41)
[2018-01-05] MEDS ORDERED: LACTULOSE 20 GM/30 ML UDCUP PO ONE (07:42)
[2018-01-05] MEDS: LINACLOTIDE 145 MCG CAPSULE PO SCH (08:49)
[2018-01-05] MEDS: amLODIPine 10 MG TABLET PO SCH (08:49)
[2018-01-05] MEDS: MUPIROCIN 2% OINT 22 GM TUBE TOP SCH ×3 (08:49→20:36)
[2018-01-05] MEDS: FLUoxetine 20 MG CAPSULE PO SCH (08:50)
[2018-01-05] MEDS: LEVOTHYROXINE 125 MCG TABLET PO SCH (08:50)
[2018-01-05] MEDS: CYCLOBENZAPRINE 10 MG TABLET PO SCH ×3 (08:50→20:34)
[2018-01-05] MEDS: MAGNESIUM OXIDE 400 MG TABLET PO SCH ×2 (08:50→20:34)
[2018-01-05] MEDS: PANTOPRAZOLE 40 MG TABLET PO SCH (08:50)
[2018-01-05] MEDS: METOPROLOL TARTRATE 50 MG TABLET PO SCH (08:50)
[2018-01-05] MEDS: MORPHINE 10 MG/1 ML VIAL IV PRN ×2 (11:44→20:35)
[2018-01-05] MEDS: FONDAPARINUX 2.5 MG/0.5 ML SYRINGE SUBCUT SCH (11:47)
[2018-01-05] MEDS ORDERED: SODIUM CHLORIDE 0.9% IV SCH (13:30)
[2018-01-05] MEDS ORDERED: DAPTOMYCIN IV SCH (13:30)
[2018-01-05] MEDS: DEXT 5% NACL 0.45% KCL 20 MEQ 20 MEQ/1,000 ML BAG IV SCH (20:34)
[2018-01-06] MEDS: CEFTAROLINE 600 MG in SODIUM CHLORIDE 0.9% 100 ML IV SCH ×2 (00:16→13:15)
[2018-01-06] MEDS: MORPHINE 10 MG/1 ML VIAL IV PRN ×2 (01:48→21:39)
[2018-01-06 05:40] LABS: Basophils % 0.9 % (0.0-0.8); Eosinophils % 0.4 % (0.00-10.9); Hematocrit 28.4 VOL% (35.7-47.0); Hemoglobin 8.9 GM/DL (12.0-16.0); Immature Granulocytes % 0.4 %; Immature Granulocytes Absolute 0.01 #; Lymphocytes # 0.4 10*3/uL (1.4-4.0); Lymphocytes % 15.9 % (21.3-54.2); Mean Corpuscular HGB Conc 31.3 GM/DL (32-36); Mean Corpuscular Hemoglobin 30 PG (27-34); Mean Platelet Volume 10.7 FL (9.6-12.0); Monocytes # 0.3 10*3/uL (0.11-0.8); Monocytes % 14.5 % (1.7-12.7); Neutrophils # 1.5 10*3/uL (1.4-7.4); Neutrophils % 67.9 % (38.7-73.9); Platelet Count 120 T/CUMM (130-400); Red Blood Count 3.02 MC/CUMM (3.8-5.5); Red Cell Distribution Width 17.2 % (9.3-17.3); White Blood Count 2.3 T/CUMM (4-12)
[2018-01-06 06:07] LABS: Calcium 8.4 MG/DL (8.5-10.1); Osmolality,Calculated 271.8 MOS/KG (273-304)
[2018-01-06] MEDS: LINACLOTIDE 145 MCG CAPSULE PO SCH (09:27)
[2018-01-06] MEDS: MAGNESIUM OXIDE 400 MG TABLET PO SCH ×2 (09:28→20:57)
[2018-01-06] MEDS: PANTOPRAZOLE 40 MG TABLET PO SCH (09:28)
[2018-01-06] MEDS: CYCLOBENZAPRINE 10 MG TABLET PO SCH ×3 (09:28→20:57)
[2018-01-06] MEDS: amLODIPine 10 MG TABLET PO SCH (09:28)
[2018-01-06] MEDS: METOPROLOL TARTRATE 50 MG TABLET PO SCH (09:28)
[2018-01-06] MEDS: FLUoxetine 20 MG CAPSULE PO SCH (09:28)
[2018-01-06] MEDS: LEVOTHYROXINE 125 MCG TABLET PO SCH (09:28)
[2018-01-06] MEDS: MUPIROCIN 2% OINT 22 GM TUBE TOP SCH ×3 (09:31→20:58)
[2018-01-06] MEDS: FONDAPARINUX 2.5 MG/0.5 ML SYRINGE SUBCUT SCH (10:53)
[2018-01-06] MEDS: DEXT 5% NACL 0.45% KCL 20 MEQ 20 MEQ/1,000 ML BAG IV SCH (22:54)
[2018-01-07] MEDS: CEFTAROLINE 600 MG in SODIUM CHLORIDE 0.9% 100 ML IV SCH ×3 (00:22→23:59)
[2018-01-07] MEDS: DEXT 5% NACL 0.45% KCL 20 MEQ 20 MEQ/1,000 ML BAG IV SCH ×2 (02:58→10:48)
[2018-01-07] MEDS: MORPHINE 10 MG/1 ML VIAL IV PRN ×3 (04:35→17:55)
[2018-01-07] MEDS: METOPROLOL TARTRATE 50 MG TABLET PO SCH (08:31)
[2018-01-07] MEDS: LEVOTHYROXINE 125 MCG TABLET PO SCH (08:31)
[2018-01-07] MEDS: PANTOPRAZOLE 40 MG TABLET PO SCH (08:31)
[2018-01-07] MEDS: CYCLOBENZAPRINE 10 MG TABLET PO SCH ×3 (08:31→21:16)
[2018-01-07] MEDS: FLUoxetine 20 MG CAPSULE PO SCH (08:31)
[2018-01-07] MEDS: amLODIPine 10 MG TABLET PO SCH (08:31)
[2018-01-07] MEDS: MAGNESIUM OXIDE 400 MG TABLET PO SCH ×2 (08:31→21:16)
[2018-01-07] MEDS: LINACLOTIDE 145 MCG CAPSULE PO SCH (08:32)
[2018-01-07] MEDS: MUPIROCIN 2% OINT 22 GM TUBE TOP SCH ×3 (08:32→21:15)
[2018-01-07] MEDS: FONDAPARINUX 2.5 MG/0.5 ML SYRINGE SUBCUT SCH (10:53)
[2018-01-07] MEDS: MORPHINE IR 15 MG TABLET PO PRN (15:09)
[2018-01-08] MEDS: DEXT 5% NACL 0.45% KCL 20 MEQ 20 MEQ/1,000 ML BAG IV SCH (01:35)
[2018-01-08] MEDS: MORPHINE IR 15 MG TABLET PO PRN ×2 (04:08→21:45)
[2018-01-08] MEDS: amLODIPine 10 MG TABLET PO SCH (08:15)
[2018-01-08] MEDS: FLUoxetine 20 MG CAPSULE PO SCH (08:15)
[2018-01-08] MEDS: METOPROLOL TARTRATE 50 MG TABLET PO SCH (08:16)
[2018-01-08] MEDS: CYCLOBENZAPRINE 10 MG TABLET PO SCH ×3 (08:16→20:03)
[2018-01-08] MEDS: PANTOPRAZOLE 40 MG TABLET PO SCH (08:16)
[2018-01-08] MEDS: LINACLOTIDE 145 MCG CAPSULE PO SCH (08:16)
[2018-01-08] MEDS: MUPIROCIN 2% OINT 22 GM TUBE TOP SCH ×3 (08:17→20:07)
[2018-01-08] MEDS: LEVOTHYROXINE 125 MCG TABLET PO SCH (08:17)
[2018-01-08] MEDS: MAGNESIUM OXIDE 400 MG TABLET PO SCH ×2 (08:17→20:03)
[2018-01-08] MEDS: FONDAPARINUX 2.5 MG/0.5 ML SYRINGE SUBCUT SCH (11:57)
[2018-01-08] MEDS: CEFTAROLINE 600 MG in SODIUM CHLORIDE 0.9% 100 ML IV SCH (14:03)
[2018-01-08] MEDS: MORPHINE 10 MG/1 ML VIAL IV PRN (20:03)
[2018-01-08] MEDS: TEMAZEPAM 7.5 MG CAPSULE PO PRN (21:46)
[2018-01-09] MEDS: DEXT 5% NACL 0.45% KCL 20 MEQ 20 MEQ/1,000 ML BAG IV SCH (00:26)
[2018-01-09] MEDS: CEFTAROLINE 600 MG in SODIUM CHLORIDE 0.9% 100 ML IV SCH ×2 (00:27→11:35)
[2018-01-09] MEDS: MORPHINE IR 15 MG TABLET PO PRN ×3 (06:44→20:25)
[2018-01-09] MEDS: LINACLOTIDE 145 MCG CAPSULE PO SCH (07:51)
[2018-01-09] MEDS: METOPROLOL TARTRATE 50 MG TABLET PO SCH (10:30)
[2018-01-09] MEDS: amLODIPine 10 MG TABLET PO SCH (10:30)
[2018-01-09] MEDS: LEVOTHYROXINE 125 MCG TABLET PO SCH (10:30)
[2018-01-09] MEDS: CYCLOBENZAPRINE 10 MG TABLET PO SCH ×3 (10:30→20:25)
[2018-01-09] MEDS: PANTOPRAZOLE 40 MG TABLET PO SCH (10:30)
[2018-01-09] MEDS: MAGNESIUM OXIDE 400 MG TABLET PO SCH ×2 (10:30→20:25)
[2018-01-09] MEDS: FLUoxetine 20 MG CAPSULE PO SCH (10:30)
[2018-01-09] MEDS: MUPIROCIN 2% OINT 22 GM TUBE TOP SCH ×3 (10:31→20:30)
[2018-01-09] MEDS: FONDAPARINUX 2.5 MG/0.5 ML SYRINGE SUBCUT SCH (10:31)
[2018-01-09] MEDS: TEMAZEPAM 7.5 MG CAPSULE PO PRN (20:25)
[2018-01-10] MEDS: DEXT 5% NACL 0.45% KCL 20 MEQ 20 MEQ/1,000 ML BAG IV SCH (00:30)
[2018-01-10] MEDS: CEFTAROLINE 600 MG in SODIUM CHLORIDE 0.9% 100 ML IV SCH ×2 (00:30→13:33)
[2018-01-10] MEDS: MORPHINE 10 MG/1 ML VIAL IV PRN (03:12)
[2018-01-10 05:23] LABS: Basophils % 0.8 % (0.0-0.8); Hematocrit 24.8 VOL% (35.7-47.0); Hemoglobin 8.2 GM/DL (12.0-16.0); Immature Granulocytes % 0.4 %; Immature Granulocytes Absolute 0.01 #; Lymphocytes # 0.3 10*3/uL (1.4-4.0); Lymphocytes % 11.5 % (21.3-54.2); Mean Corpuscular HGB Conc 33.1 GM/DL (32-36); Mean Corpuscular Hemoglobin 30 PG (27-34); Mean Corpuscular Volume 91.5 FL (87-102); Monocytes # 0.3 10*3/uL (0.11-0.8); Monocytes % 13.5 % (1.7-12.7); Neutrophils # 1.9 10*3/uL (1.4-7.4); Neutrophils % 73.8 % (38.7-73.9); Platelet Count 138 T/CUMM (130-400); Red Blood Count 2.71 MC/CUMM (3.8-5.5); Red Cell Distribution Width 17.5 % (9.3-17.3); White Blood Count 2.5 T/CUMM (4-12)
[2018-01-10 05:37] LABS: Calcium 8.7 MG/DL (8.5-10.1); Osmolality,Calculated 271.8 MOS/KG (273-304); Potassium 3.8 MMOL/L (3.5-5.1)
[2018-01-10 06:10] LABS: Giant Platelets Few; Hypochromasia 1+; Microcytosis Slight; Ovalocytes Slight; Platelet Estimate Normal
[2018-01-10] MEDS ORDERED: SODIUM CHLORIDE 0.9% 1,000 ML IV PRN (08:02)
[2018-01-10] MEDS: METOPROLOL TARTRATE 50 MG TABLET PO SCH (09:27)
[2018-01-10] MEDS: LEVOTHYROXINE 125 MCG TABLET PO SCH (09:27)
[2018-01-10] MEDS: CYCLOBENZAPRINE 10 MG TABLET PO SCH ×3 (09:27→20:20)
[2018-01-10] MEDS: PANTOPRAZOLE 40 MG TABLET PO SCH (09:27)
[2018-01-10] MEDS: FLUoxetine 20 MG CAPSULE PO SCH (09:27)
[2018-01-10] MEDS: amLODIPine 10 MG TABLET PO SCH (09:27)
[2018-01-10] MEDS: LINACLOTIDE 145 MCG CAPSULE PO SCH (09:28)
[2018-01-10] MEDS: MAGNESIUM OXIDE 400 MG TABLET PO SCH ×2 (09:28→20:19)
[2018-01-10] MEDS: MUPIROCIN 2% OINT 22 GM TUBE TOP SCH ×3 (09:29→20:21)
[2018-01-10] MEDS: FONDAPARINUX 2.5 MG/0.5 ML SYRINGE SUBCUT SCH (11:43)
[2018-01-10] MEDS: MORPHINE IR 15 MG TABLET PO PRN ×2 (15:07→23:41)
[2018-01-11] MEDS: CEFTAROLINE 600 MG in SODIUM CHLORIDE 0.9% 100 ML IV SCH ×2 (00:47→13:43)
[2018-01-11] MEDS: MORPHINE 10 MG/1 ML VIAL IV PRN (02:29)
[2018-01-11] MEDS: DEXT 5% NACL 0.45% KCL 20 MEQ 20 MEQ/1,000 ML BAG IV SCH (03:30)
[2018-01-11 06:22] LABS: Basophils % 0.3 % (0.0-0.8); Hematocrit 29.5 VOL% (35.7-47.0); Hemoglobin 9.8 GM/DL (12.0-16.0); Immature Granulocytes % 0.7 %; Immature Granulocytes Absolute 0.02 #; Lymphocytes # 0.4 10*3/uL (1.4-4.0); Mean Corpuscular HGB Conc 33.2 GM/DL (32-36); Mean Corpuscular Hemoglobin 29 PG (27-34); Mean Corpuscular Volume 87.5 FL (87-102); Monocytes # 0.3 10*3/uL (0.11-0.8); Monocytes % 11.5 % (1.7-12.7); Neutrophils # 2.1 10*3/uL (1.4-7.4); Neutrophils % 72.5 % (38.7-73.9); Platelet Count 141 T/CUMM (130-400); Red Blood Count 3.37 MC/CUMM (3.8-5.5); Red Cell Distribution Width 18.6 % (9.3-17.3); White Blood Count 2.9 T/CUMM (4-12)
[2018-01-11 06:58] LABS: Giant Platelets Few; Hypochromasia 1+; Lymphocytes 8 % (20-55); Ovalocytes Slight; Platelet Estimate Normal; Segmented Neutrophils 82 % (50-85); Total Cells Counted 100
[2018-01-11 06:59] LABS: Microcytosis Slight
[2018-01-11] MEDS: MORPHINE IR 15 MG TABLET PO PRN ×2 (07:49→13:43)
[2018-01-11] MEDS: LINACLOTIDE 145 MCG CAPSULE PO SCH (07:51)
[2018-01-11] MEDS: FLUoxetine 20 MG CAPSULE PO SCH (09:24)
[2018-01-11] MEDS: LEVOTHYROXINE 125 MCG TABLET PO SCH (09:24)
[2018-01-11] MEDS: MAGNESIUM OXIDE 400 MG TABLET PO SCH ×2 (09:24→22:12)
[2018-01-11] MEDS: PANTOPRAZOLE 40 MG TABLET PO SCH (09:24)
[2018-01-11] MEDS: amLODIPine 10 MG TABLET PO SCH (09:24)
[2018-01-11] MEDS: CYCLOBENZAPRINE 10 MG TABLET PO SCH ×3 (09:24→22:12)
[2018-01-11] MEDS: METOPROLOL TARTRATE 50 MG TABLET PO SCH (09:24)
[2018-01-11] MEDS: MUPIROCIN 2% OINT 22 GM TUBE TOP SCH ×3 (09:52→22:14)
[2018-01-11] MEDS: FONDAPARINUX 2.5 MG/0.5 ML SYRINGE SUBCUT SCH (10:37)
[2018-01-12] MEDS: CEFTAROLINE 600 MG in SODIUM CHLORIDE 0.9% 100 ML IV SCH ×2 (00:28→12:43)
[2018-01-12] MEDS: MORPHINE IR 15 MG TABLET PO PRN ×2 (04:50→20:43)
[2018-01-12] MEDS: DEXT 5% NACL 0.45% KCL 20 MEQ 20 MEQ/1,000 ML BAG IV SCH ×2 (07:44→12:43)
[2018-01-12] MEDS: MORPHINE 10 MG/1 ML VIAL IV PRN ×3 (08:42→22:07)
[2018-01-12] MEDS: FLUoxetine 20 MG CAPSULE PO SCH (08:44)
[2018-01-12] MEDS: LEVOTHYROXINE 125 MCG TABLET PO SCH (08:44)
[2018-01-12] MEDS: MAGNESIUM OXIDE 400 MG TABLET PO SCH ×2 (08:44→20:43)
[2018-01-12] MEDS: CYCLOBENZAPRINE 10 MG TABLET PO SCH ×3 (08:44→20:44)
[2018-01-12] MEDS: amLODIPine 10 MG TABLET PO SCH (08:44)
[2018-01-12] MEDS: PANTOPRAZOLE 40 MG TABLET PO SCH (08:44)
[2018-01-12] MEDS: METOPROLOL TARTRATE 50 MG TABLET PO SCH (08:44)
[2018-01-12] MEDS: LINACLOTIDE 145 MCG CAPSULE PO SCH (08:45)
[2018-01-12] MEDS: MUPIROCIN 2% OINT 22 GM TUBE TOP SCH ×3 (08:49→20:44)
[2018-01-12] MEDS: FONDAPARINUX 2.5 MG/0.5 ML SYRINGE SUBCUT SCH (11:11)
[2018-01-12] MEDS ORDERED: fentaNYL 25 MCG/HR PATCH TRANSDERM SCH (17:00)
[2018-01-13] MEDS: MORPHINE 10 MG/1 ML VIAL IV PRN (01:30)
[2018-01-13] MEDS ORDERED: MEPERIDINE 50 MG/1 ML VIAL IV PRN ×2 (06:32→20:35)
[2018-01-13] MEDS: MORPHINE IR 15 MG TABLET PO PRN (06:41)
[2018-01-13] MEDS ORDERED: DEXAMETHASONE 4 MG/1 ML VIAL IV ONE (07:56)
[2018-01-13] MEDS: CYCLOBENZAPRINE 10 MG TABLET PO SCH ×3 (09:26→20:38)
[2018-01-13] MEDS: FLUoxetine 20 MG CAPSULE PO SCH (09:26)
[2018-01-13] MEDS: MAGNESIUM OXIDE 400 MG TABLET PO SCH ×2 (09:26→20:38)
[2018-01-13] MEDS: PANTOPRAZOLE 40 MG TABLET PO SCH (09:26)
[2018-01-13] MEDS: amLODIPine 10 MG TABLET PO SCH (09:26)
[2018-01-13] MEDS: METOPROLOL TARTRATE 50 MG TABLET PO SCH (09:26)
[2018-01-13] MEDS: MORPHINE ER 30 MG TABLET PO SCH ×3 (09:27→21:28)
[2018-01-13] MEDS: DEXT 5% NACL 0.45% KCL 20 MEQ 20 MEQ/1,000 ML BAG IV SCH (09:30)
[2018-01-13] MEDS: FONDAPARINUX 2.5 MG/0.5 ML SYRINGE SUBCUT SCH (09:30)
[2018-01-13] MEDS: MUPIROCIN 2% OINT 22 GM TUBE TOP SCH ×3 (09:38→20:39)
[2018-01-13] MEDS: LEVOTHYROXINE 125 MCG TABLET PO SCH (09:38)
[2018-01-13] MEDS: LINACLOTIDE 145 MCG CAPSULE PO SCH (09:38)
[2018-01-13] MEDS: LACTULOSE 20 GM/30 ML UDCUP PO PRN (16:02)
[2018-01-13] MEDS ORDERED: oxyCODONE/ACETAMINOPHEN 5-325 MG TABLET PO PRN (20:34)
[2018-01-14] MEDS ORDERED: NALOXONE 0.4 MG/ML VIAL IV PRN (05:36)
[2018-01-14] MEDS: DEXT 5% NACL 0.45% KCL 20 MEQ 20 MEQ/1,000 ML BAG IV SCH (05:53)
[2018-01-14] MEDS: CYCLOBENZAPRINE 10 MG TABLET PO SCH (08:52)
[2018-01-14] MEDS: FLUoxetine 20 MG CAPSULE PO SCH (08:52)
[2018-01-14] MEDS: METOPROLOL TARTRATE 50 MG TABLET PO SCH (08:52)
[2018-01-14] MEDS: MAGNESIUM OXIDE 400 MG TABLET PO SCH (08:52)
[2018-01-14] MEDS: LEVOTHYROXINE 125 MCG TABLET PO SCH (08:52)
[2018-01-14] MEDS: amLODIPine 10 MG TABLET PO SCH (08:52)
[2018-01-14] MEDS: PANTOPRAZOLE 40 MG TABLET PO SCH (08:52)
[2018-01-14] MEDS: MUPIROCIN 2% OINT 22 GM TUBE TOP SCH (08:54)
[2018-01-14] MEDS: LINACLOTIDE 145 MCG CAPSULE PO SCH (10:56)
[2018-01-14] MEDS: FONDAPARINUX 2.5 MG/0.5 ML SYRINGE SUBCUT SCH (10:56)
[2018-01-14 13:25] VITALS: BP 118/83
== END 2018-01-14 14:35 | DRG 853 ==
LOC: N.ED 10:05 → N.EDINP 12:58 → N.4E 16:46
PROVIDERS: ADMIT Specialist; ATTEND Specialist

== ENCOUNTER 2018-02-01 11:04 | Inpatient (IN) ==
[2018-02-01] MEDS ORDERED: PRAMIPEXOLE 1 MG TABLET PO PRN (15:52)
[2018-02-01] MEDS ORDERED: DAPTOmycin 500 MG VIAL IV SCH (16:00)
[2018-02-01] MEDS: IMMUNE GLOBULIN 10% 20 GM, IMMUNE GLOBULIN 10% 5 GM in PREMIX 1 EACH IV SCH (16:12)
[2018-02-01] MEDS: CYCLOBENZAPRINE 10 MG TABLET PO PRN (17:38)
[2018-02-01] MEDS: MORPHINE 2 MG/1 ML SYRINGE IV PRN (19:06)
[2018-02-01] MEDS: FAMOTIDINE 20 MG TABLET PO SCH (20:53)
[2018-02-01] MEDS: PREGABALIN 50 MG CAPSULE PO SCH (20:53)
[2018-02-01] MEDS: DOCUSATE SODIUM 100 MG CAPSULE PO SCH (20:53)
[2018-02-02] MEDS: MORPHINE 2 MG/1 ML SYRINGE IV PRN ×5 (02:50→20:25)
[2018-02-02 05:09] LABS: Basophils % 0.4 % (0.0-0.8); Eosinophils % 0.2 % (0.00-10.9); Hematocrit 27.7 VOL% (35.7-47.0); Hemoglobin 8.5 GM/DL (12.0-16.0); Immature Granulocytes % 0.6 %; Immature Granulocytes Absolute 0.03 #; Lymphocytes # 0.6 10*3/uL (1.4-4.0); Mean Corpuscular HGB Conc 30.7 GM/DL (32-36); Mean Corpuscular Hemoglobin 30 PG (27-34); Mean Corpuscular Volume 97.2 FL (87-102); Mean Platelet Volume 10.5 FL (9.6-12.0); Monocytes # 0.3 10*3/uL (0.11-0.8); Monocytes % 6.4 % (1.7-12.7); Neutrophils % 80.4 % (38.7-73.9); Platelet Count 125 T/CUMM (130-400); Red Blood Count 2.85 MC/CUMM (3.8-5.5); Red Cell Distribution Width 20.8 % (9.3-17.3)
[2018-02-02 05:39] LABS: Albumin 2.4 G/DL (3.4-5.0); Bilirubin,Total 0.6 MG/DL (0.2-1.0); Calcium 8.6 MG/DL (8.5-10.1); Osmolality,Calculated 276.7 MOS/KG (273-304); Potassium 4.3 MMOL/L (3.5-5.1); Total Protein 7.2 G/DL (6.4-8.3)
[2018-02-02] MEDS ORDERED: PANTOPRAZOLE 40 MG TABLET PO SCH (09:00)
[2018-02-02] MEDS ORDERED: ONDANSETRON 4 MG/2 ML VIAL IV PRN (09:20)
[2018-02-02] MEDS: POTASSIUM CHLORIDE 20 MEQ TABLET PO SCH (15:43)
[2018-02-02] MEDS: DOCUSATE SODIUM 100 MG CAPSULE PO SCH ×2 (15:43→20:25)
[2018-02-02] MEDS: LACTULOSE 20 GM/30 ML UDCUP PO SCH (15:43)
[2018-02-02] MEDS: LINACLOTIDE 145 MCG CAPSULE PO SCH (15:43)
[2018-02-02] MEDS: PREGABALIN 50 MG CAPSULE PO SCH ×3 (15:43→20:25)
[2018-02-02] MEDS: LEVOTHYROXINE 125 MCG TABLET PO SCH (15:44)
[2018-02-02] MEDS: amLODIPine 5 MG TABLET PO SCH (16:58)
[2018-02-02] MEDS: FLUoxetine 20 MG CAPSULE PO SCH (16:58)
[2018-02-02] MEDS: FAMOTIDINE 20 MG TABLET PO SCH ×2 (16:58→20:25)
[2018-02-02] MEDS: PANTOPRAZOLE 40 MG TABLET PO SCH (16:58)
[2018-02-02] MEDS: METOPROLOL TARTRATE 50 MG TABLET PO SCH (16:59)
[2018-02-02] MEDS: IMMUNE GLOBULIN 10% 20 GM, IMMUNE GLOBULIN 10% 5 GM in PREMIX 1 EACH IV SCH (17:04)
[2018-02-02] MEDS: CYCLOBENZAPRINE 10 MG TABLET PO PRN (20:25)
[2018-02-03] MEDS: MORPHINE 2 MG/1 ML SYRINGE IV PRN ×4 (08:40→23:32)
[2018-02-03] MEDS: LINACLOTIDE 145 MCG CAPSULE PO SCH (08:50)
[2018-02-03] MEDS: FAMOTIDINE 20 MG TABLET PO SCH ×2 (08:50→21:24)
[2018-02-03] MEDS: PANTOPRAZOLE 40 MG TABLET PO SCH (08:51)
[2018-02-03] MEDS: LEVOTHYROXINE 125 MCG TABLET PO SCH (08:51)
[2018-02-03] MEDS: CYCLOBENZAPRINE 10 MG TABLET PO PRN (08:51)
[2018-02-03] MEDS: PREGABALIN 50 MG CAPSULE PO SCH ×3 (08:51→21:20)
[2018-02-03] MEDS: DOCUSATE SODIUM 100 MG CAPSULE PO SCH ×2 (08:51→21:20)
[2018-02-03] MEDS: POTASSIUM CHLORIDE 20 MEQ TABLET PO SCH (08:51)
[2018-02-03] MEDS: FLUoxetine 20 MG CAPSULE PO SCH (08:51)
[2018-02-03] MEDS: METOPROLOL TARTRATE 50 MG TABLET PO SCH (08:51)
[2018-02-03] MEDS: amLODIPine 5 MG TABLET PO SCH (08:52)
[2018-02-03] MEDS: LACTULOSE 20 GM/30 ML UDCUP PO SCH (08:52)
[2018-02-03] MEDS: IMMUNE GLOBULIN 10% 20 GM, IMMUNE GLOBULIN 10% 5 GM in PREMIX 1 EACH IV SCH (14:59)
[2018-02-03] MEDS: ENOXAPARIN 60 MG/0.6 ML SYRINGE SUBCUT SCH (14:59)
[2018-02-04] MEDS: ENOXAPARIN 60 MG/0.6 ML SYRINGE SUBCUT SCH ×2 (03:57→15:14)
[2018-02-04 06:11] LABS: Basophils % 0.6 % (0.0-0.8); Eosinophils % 1.2 % (0.00-10.9); Hematocrit 25.7 VOL% (35.7-47.0); Hemoglobin 8.2 GM/DL (12.0-16.0); Immature Granulocytes % 0.6 %; Immature Granulocytes Absolute 0.01 #; Lymphocytes # 0.4 10*3/uL (1.4-4.0); Lymphocytes % 23.8 % (21.3-54.2); Mean Corpuscular HGB Conc 31.9 GM/DL (32-36); Mean Corpuscular Hemoglobin 30 PG (27-34); Mean Corpuscular Volume 94.1 FL (87-102); Mean Platelet Volume 10.2 FL (9.6-12.0); Monocytes # 0.3 10*3/uL (0.11-0.8); Monocytes % 14.5 % (1.7-12.7); Neutrophils % 59.3 % (38.7-73.9); Platelet Count 123 T/CUMM (130-400); Red Blood Count 2.73 MC/CUMM (3.8-5.5); Red Cell Distribution Width 20.2 % (9.3-17.3); White Blood Count 1.7 T/CUMM (4-12)
[2018-02-04 06:24] LABS: Calcium 8.2 MG/DL (8.5-10.1); Osmolality,Calculated 274.8 MOS/KG (273-304); Potassium 3.8 MMOL/L (3.5-5.1)
[2018-02-04 06:33] LABS: Band Neutrophils 2 % (0-10); Eosinophils 1 % (0-10); Lymphocytes 20 % (20-55); Platelet Estimate Normal; Segmented Neutrophils 60 % (50-85); Total Cells Counted 100
[2018-02-04 06:34] LABS: Giant Platelets Few; Hypochromasia 1+; Microcytosis Slight
[2018-02-04] MEDS: oxyCODONE/ACETAMINOPHEN 5-325 MG TABLET PO PRN ×2 (09:57→20:42)
[2018-02-04] MEDS: FAMOTIDINE 20 MG TABLET PO SCH ×2 (09:58→20:42)
[2018-02-04] MEDS: FLUoxetine 20 MG CAPSULE PO SCH (09:58)
[2018-02-04] MEDS: CYCLOBENZAPRINE 10 MG TABLET PO PRN (09:58)
[2018-02-04] MEDS: amLODIPine 5 MG TABLET PO SCH (09:58)
[2018-02-04] MEDS: PREGABALIN 50 MG CAPSULE PO SCH ×3 (09:58→20:41)
[2018-02-04] MEDS: LEVOTHYROXINE 125 MCG TABLET PO SCH (09:58)
[2018-02-04] MEDS: METOPROLOL TARTRATE 50 MG TABLET PO SCH (09:58)
[2018-02-04] MEDS: DOCUSATE SODIUM 100 MG CAPSULE PO SCH ×2 (09:58→20:41)
[2018-02-04] MEDS: POTASSIUM CHLORIDE 20 MEQ TABLET PO SCH (09:58)
[2018-02-04] MEDS: PANTOPRAZOLE 40 MG TABLET PO SCH (09:58)
[2018-02-04] MEDS: LACTULOSE 20 GM/30 ML UDCUP PO SCH (09:59)
[2018-02-04] MEDS: fentaNYL 25 MCG/HR PATCH TRANSDERM SCH (10:00)
[2018-02-04] MEDS: LINACLOTIDE 145 MCG CAPSULE PO SCH (10:01)
[2018-02-04] MEDS: MORPHINE 4 MG/1 ML VIAL IV PRN (12:20)
[2018-02-04] MEDS: IMMUNE GLOBULIN 10% 20 GM, IMMUNE GLOBULIN 10% 5 GM in PREMIX 1 EACH IV SCH (20:14)
[2018-02-05] MEDS: ENOXAPARIN 60 MG/0.6 ML SYRINGE SUBCUT SCH ×2 (01:21→14:10)
[2018-02-05] MEDS: oxyCODONE/ACETAMINOPHEN 5-325 MG TABLET PO PRN ×2 (06:48→18:00)
[2018-02-05] MEDS: PREGABALIN 50 MG CAPSULE PO SCH ×3 (09:14→20:09)
[2018-02-05] MEDS: DOCUSATE SODIUM 100 MG CAPSULE PO SCH ×2 (09:14→20:09)
[2018-02-05] MEDS: METOPROLOL TARTRATE 50 MG TABLET PO SCH (09:14)
[2018-02-05] MEDS: LINACLOTIDE 145 MCG CAPSULE PO SCH (09:14)
[2018-02-05] MEDS: LACTULOSE 20 GM/30 ML UDCUP PO SCH (09:14)
[2018-02-05] MEDS: LEVOTHYROXINE 125 MCG TABLET PO SCH (09:14)
[2018-02-05] MEDS: PANTOPRAZOLE 40 MG TABLET PO SCH (09:14)
[2018-02-05] MEDS: FAMOTIDINE 20 MG TABLET PO SCH ×2 (09:14→20:09)
[2018-02-05] MEDS: POTASSIUM CHLORIDE 20 MEQ TABLET PO SCH (09:14)
[2018-02-05] MEDS: FLUoxetine 20 MG CAPSULE PO SCH (09:14)
[2018-02-05] MEDS: amLODIPine 5 MG TABLET PO SCH (09:14)
[2018-02-05] MEDS: IMMUNE GLOBULIN 10% 20 GM, IMMUNE GLOBULIN 10% 5 GM in PREMIX 1 EACH IV SCH (16:55)
[2018-02-05] MEDS: CYCLOBENZAPRINE 10 MG TABLET PO PRN (20:09)
[2018-02-06] MEDS: ENOXAPARIN 60 MG/0.6 ML SYRINGE SUBCUT SCH ×2 (01:54→10:30)
[2018-02-06] MEDS: oxyCODONE/ACETAMINOPHEN 5-325 MG TABLET PO PRN ×4 (01:59→20:36)
[2018-02-06 03:18] LABS: Basophils % 0.8 % (0.0-0.8); Eosinophils % 1.2 % (0.00-10.9); Hematocrit 25.4 VOL% (35.7-47.0); Immature Granulocytes % 0.8 %; Immature Granulocytes Absolute 0.02 #; Lymphocytes # 0.6 10*3/uL (1.4-4.0); Lymphocytes % 22.8 % (21.3-54.2); Mean Corpuscular HGB Conc 31.5 GM/DL (32-36); Mean Corpuscular Hemoglobin 30 PG (27-34); Mean Corpuscular Volume 95.5 FL (87-102); Monocytes # 0.4 10*3/uL (0.11-0.8); Monocytes % 14.2 % (1.7-12.7); Neutrophils # 1.5 10*3/uL (1.4-7.4); Neutrophils % 60.2 % (38.7-73.9); Platelet Count 146 T/CUMM (130-400); Red Blood Count 2.66 MC/CUMM (3.8-5.5); Red Cell Distribution Width 19.9 % (9.3-17.3); White Blood Count 2.5 T/CUMM (4-12)
[2018-02-06 03:51] LABS: Calcium 8.1 MG/DL (8.5-10.1)
[2018-02-06] MEDS: LEVOTHYROXINE 125 MCG TABLET PO SCH (08:09)
[2018-02-06] MEDS: PANTOPRAZOLE 40 MG TABLET PO SCH (08:09)
[2018-02-06] MEDS: FAMOTIDINE 20 MG TABLET PO SCH ×2 (08:09→20:36)
[2018-02-06] MEDS: LINACLOTIDE 145 MCG CAPSULE PO SCH (08:09)
[2018-02-06] MEDS: PREGABALIN 50 MG CAPSULE PO SCH ×3 (08:10→20:37)
[2018-02-06] MEDS: DOCUSATE SODIUM 100 MG CAPSULE PO SCH ×2 (08:10→20:37)
[2018-02-06] MEDS: amLODIPine 5 MG TABLET PO SCH (08:10)
[2018-02-06] MEDS: CYCLOBENZAPRINE 10 MG TABLET PO PRN ×2 (08:10→17:47)
[2018-02-06] MEDS: POTASSIUM CHLORIDE 20 MEQ TABLET PO SCH (08:10)
[2018-02-06] MEDS: METOPROLOL TARTRATE 50 MG TABLET PO SCH (08:10)
[2018-02-06] MEDS: FLUoxetine 20 MG CAPSULE PO SCH (08:10)
[2018-02-06] MEDS: LACTULOSE 20 GM/30 ML UDCUP PO SCH (08:11)
[2018-02-06] MEDS: MORPHINE 4 MG/1 ML VIAL IV PRN (17:47)
[2018-02-07] MEDS: oxyCODONE/ACETAMINOPHEN 5-325 MG TABLET PO PRN ×2 (04:53→20:53)
[2018-02-07] MEDS: ENOXAPARIN 60 MG/0.6 ML SYRINGE SUBCUT SCH (04:54)
[2018-02-07 05:35] LABS: Basophils % 0.4 % (0.0-0.8); Eosinophils % 1.1 % (0.00-10.9); Hematocrit 25.9 VOL% (35.7-47.0); Hemoglobin 8.2 GM/DL (12.0-16.0); Immature Granulocytes % 0.7 %; Immature Granulocytes Absolute 0.02 #; Lymphocytes # 0.6 10*3/uL (1.4-4.0); Lymphocytes % 22.8 % (21.3-54.2); Mean Corpuscular HGB Conc 31.7 GM/DL (32-36); Mean Corpuscular Hemoglobin 30 PG (27-34); Mean Corpuscular Volume 94.5 FL (87-102); Mean Platelet Volume 10.5 FL (9.6-12.0); Monocytes # 0.3 10*3/uL (0.11-0.8); Monocytes % 11.6 % (1.7-12.7); Neutrophils # 1.7 10*3/uL (1.4-7.4); Neutrophils % 63.4 % (38.7-73.9); Platelet Count 146 T/CUMM (130-400); Red Blood Count 2.74 MC/CUMM (3.8-5.5); Red Cell Distribution Width 20.2 % (9.3-17.3); White Blood Count 2.7 T/CUMM (4-12)
[2018-02-07 05:59] LABS: Hypochromasia 1+; Microcytosis 1+
[2018-02-07 06:00] LABS: Anisocytosis 1+; Ovalocytes Slight; Platelet Estimate Adequate; Polychromasia Slight
[2018-02-07] MEDS: FAMOTIDINE 20 MG TABLET PO SCH ×2 (08:41→20:50)
[2018-02-07] MEDS: LEVOTHYROXINE 125 MCG TABLET PO SCH (08:41)
[2018-02-07] MEDS: POTASSIUM CHLORIDE 20 MEQ TABLET PO SCH (08:41)
[2018-02-07] MEDS: DOCUSATE SODIUM 100 MG CAPSULE PO SCH ×2 (08:41→20:51)
[2018-02-07] MEDS: PANTOPRAZOLE 40 MG TABLET PO SCH (08:41)
[2018-02-07] MEDS: amLODIPine 5 MG TABLET PO SCH (08:41)
[2018-02-07] MEDS: PREGABALIN 50 MG CAPSULE PO SCH ×3 (08:41→20:50)
[2018-02-07] MEDS: METOPROLOL TARTRATE 50 MG TABLET PO SCH (08:42)
[2018-02-07] MEDS: LACTULOSE 20 GM/30 ML UDCUP PO SCH (08:42)
[2018-02-07] MEDS: FLUoxetine 20 MG CAPSULE PO SCH (08:42)
[2018-02-07] MEDS: fentaNYL 25 MCG/HR PATCH TRANSDERM SCH (08:42)
[2018-02-07] MEDS: LINACLOTIDE 145 MCG CAPSULE PO SCH (08:47)
[2018-02-07] MEDS: MORPHINE 4 MG/1 ML VIAL IV PRN (08:59)
[2018-02-07] MEDS ORDERED: POLYETHYLENE GLYCOL POWDER 17 GM PACK PO ONE (11:30)
[2018-02-07] MEDS: APIXABAN 5 MG TABLET PO SCH ×2 (12:19→20:50)
[2018-02-08 07:45] VITALS: BP 148/89
[2018-02-08] MEDS: oxyCODONE/ACETAMINOPHEN 5-325 MG TABLET PO PRN (07:58)
[2018-02-08] MEDS: FAMOTIDINE 20 MG TABLET PO SCH (08:33)
[2018-02-08] MEDS: LACTULOSE 20 GM/30 ML UDCUP PO SCH (08:33)
[2018-02-08] MEDS: POTASSIUM CHLORIDE 20 MEQ TABLET PO SCH (08:33)
[2018-02-08] MEDS: LEVOTHYROXINE 125 MCG TABLET PO SCH (08:33)
[2018-02-08] MEDS: APIXABAN 5 MG TABLET PO SCH (08:34)
[2018-02-08] MEDS: PANTOPRAZOLE 40 MG TABLET PO SCH (08:34)
[2018-02-08] MEDS: METOPROLOL TARTRATE 50 MG TABLET PO SCH (08:34)
[2018-02-08] MEDS: LINACLOTIDE 145 MCG CAPSULE PO SCH (08:34)
[2018-02-08] MEDS: amLODIPine 5 MG TABLET PO SCH (08:34)
[2018-02-08] MEDS: DOCUSATE SODIUM 100 MG CAPSULE PO SCH (08:34)
[2018-02-08] MEDS: PREGABALIN 50 MG CAPSULE PO SCH (08:34)
[2018-02-08] MEDS: FLUoxetine 20 MG CAPSULE PO SCH (08:38)
== END 2018-02-08 11:40 | DRG 94 ==
LOC: N.4E 14:38 → SUATTDRO 14:38
PROVIDERS: ADMIT Internal Medicine; ATTEND Family Medicine

== ENCOUNTER 2018-04-09 14:33 | Inpatient (IN) ==
[2018-04-09] MEDS ORDERED: MEROPENEM 1,000 MG in SODIUM CHLORIDE 0.9% 100 ML IV STA (15:17)
[2018-04-09 15:56] LABS: Hematocrit 27.2 VOL% (35.7-47.0); Hemoglobin 8.6 GM/DL (12.0-16.0); Immature Granulocytes % 0.8 %; Immature Granulocytes Absolute 0.06 #; Lymphocytes # 0.4 10*3/uL (1.4-4.0); Lymphocytes % 4.6 % (21.3-54.2); Mean Corpuscular HGB Conc 31.6 GM/DL (32-36); Mean Corpuscular Hemoglobin 31 PG (27-34); Mean Corpuscular Volume 97.8 FL (87-102); Mean Platelet Volume 9.5 FL (9.6-12.0); Monocytes # 0.4 10*3/uL (0.11-0.8); Monocytes % 5.5 % (1.7-12.7); Neutrophils % 89.1 % (38.7-73.9); Platelet Count 176 T/CUMM (130-400); Red Blood Count 2.78 MC/CUMM (3.8-5.5); Red Cell Distribution Width 19.4 % (9.3-17.3); White Blood Count 7.9 T/CUMM (4-12)
[2018-04-09 16:08] LABS: INR 1.1; PT Patient Result 11.3 SECS; Partial Thromboplastin Time 29.4 SECS (0-40)
[2018-04-09 16:15] LABS: Alanine Aminotransferase < 9 U/L (13-56); Alkaline Phosphatase 144 U/L (45-117); Aspartate Amino Transferase 17 U/L (0-37); Blood Urea Nitrogen 16 MG/DL (7-18); Glucose 111 MG/DL (74-106); Osmolality,Calculated 274.8 MOS/KG (273-304); Potassium 3.5 MMOL/L (3.5-5.1); Sodium 137 MMOL/L (136-145); Total Protein 7.2 G/DL (6.4-8.3)
[2018-04-09 16:25] LABS: Apearance,Urine CLOUDY (Clear); Bacteria,Urine Many /HPF (Few); Bilirubin,Urine Negative (Negative); Blood, Urine Moderate mg/dL (Negative); Glucose,Urine (UA) Negative (Negative); Ketones,Urine Negative (Negative); Mucus,Urine Moderate /LPF (Occasional); Nitrite,Urine Negative (Negative); Protein,Urine 30 MG/DL; RBC,Urine 96 /HPF (0-4); Urine Color Amber (Yellow); Urine Specific Gravity 1.006 (1.001-1.035); Urine Urobilinogen < 2.0 EU/DL (0.2-1.0); WBC,Urine 1085 /HPF (0-6)
[2018-04-09 16:25] LABS: Ammonia < 10 UMOL/L (11-32)
[2018-04-09 17:43] LABS: Band Neutrophils 3 % (0-10); Lymphocytes 7 % (20-55); Platelet Estimate Normal; Segmented Neutrophils 87 % (50-85); Total Cells Counted 100
[2018-04-09] MEDS ORDERED: LORazepam 2 MG/1 ML VIAL IV PRN ×2 (18:13→18:18)
[2018-04-09] MEDS ORDERED: ACETAMINOPHEN 650 MG SUPP RECTAL PRN (18:20)
[2018-04-09] MEDS ORDERED: PROMETHAZINE 25 MG SUPP RECTAL PRN (18:20)
[2018-04-09] MEDS ORDERED: DEXTROSE 5% NACL 0.45% 1,000 ML IV SCH (18:30)
[2018-04-09] MEDS ORDERED: SCOPOLAMINE 1.5 MG PATCH TRANSDERM ONE (19:30)
[2018-04-09] MEDS ORDERED: cefTRIAXone 1,000 MG in SYRINGE 1 EACH IV SCH (20:00)
[2018-04-10] MEDS ORDERED: MEROPENEM 1,000 MG in SYRINGE 1 EACH IV SCH (11:00)
[2018-04-10] MEDS: MORPHINE 4 MG/1 ML VIAL IV PRN ×3 (15:19→19:56)
[2018-04-11] MEDS: MORPHINE 4 MG/1 ML VIAL IV PRN ×3 (04:26→10:52)
[2018-04-11 08:38] VITALS: BP 144/78
[2018-04-11] MEDS ORDERED: LORazepam 2 MG/1 ML VIAL IV ONE (09:52)
[2018-04-11] MEDS ORDERED: MORPHINE 4 MG/1 ML VIAL IV ONE (09:52)
== END 2018-04-11 11:29 | disposition hospice, home (50) | DRG 689 ==
LOC: EDBD → EDUNIT# → N.ED 14:33 → SUATTDRO 17:57 → N.EDINP 17:57 → N.2E 18:51 → N.4E 19:14
PROVIDERS: ADMIT Internal Medicine Infectious Disease; ATTEND Internal Medicine

== ENCOUNTER 2018-05-09 18:19 | Inpatient (IN) ==
[2018-05-19 00:57] VITALS: BP 99/53
== END 2018-05-18 14:10 | disposition hospice, inpatient (51) | DRG 193 ==
LOC: EDBD → EDUNIT# → N.ED 18:19 → SUATTDRO 23:44 → N.3E 23:44 → N.ICU 05-10 10:00 → N.2E 05-13 14:31
PROVIDERS: ADMIT Internal Medicine; ATTEND Internal Medicine

== ENCOUNTER 2018-05-18 14:07 | Inpatient (IN) ==
[2018-05-18] MEDS ORDERED: LORazepam 1 MG TABLET PO PRN (18:06)
[2018-05-19] MEDS: MORPHINE 20 MG/ML PO PRN ×2 (10:01→11:42)
[2018-05-19] MEDS: SCOPOLAMINE 1.5 MG PATCH TRANSDERM SCH (13:38)
[2018-05-21] MEDS: MORPHINE 20 MG/ML PO PRN ×2 (11:02→14:03)
[2018-05-22] MEDS: SCOPOLAMINE 1.5 MG PATCH TRANSDERM SCH (09:20)
[2018-05-22] MEDS: MORPHINE 20 MG/ML PO PRN ×3 (12:10→16:51)
[2018-05-25] MEDS: MORPHINE 4 MG/1 ML VIAL IV PRN ×2 (03:17→04:14)
[2018-05-25] MEDS ORDERED: LORazepam 2 MG/1 ML VIAL IV PRN (08:53)
[2018-05-25] MEDS: SCOPOLAMINE 1.5 MG PATCH TRANSDERM SCH (12:15)
[2018-05-26] MEDS ORDERED: MORPHINE 4 MG/1 ML VIAL IV PRN (08:12)
[2018-05-26] MEDS: MORPHINE 20 MG/ML PO PRN (11:03)
[2018-05-26] MEDS: [UNRECOGNIZED DRUG - OTHER] PO PRN (12:35)
[2018-05-27] MEDS: [UNRECOGNIZED DRUG - OTHER] PO PRN (10:23)
[2018-05-27 11:49] VITALS: BP 68/32
[2018-05-27] MEDS: MORPHINE 20 MG/ML PO PRN (12:05)
== END 2018-05-27 15:28 | disposition expired | DRG 951 ==
LOC: N.2E 14:07
PROVIDERS: ADMIT Internal Medicine; ATTEND Internal Medicine